=== PATIENT | male | born 1940 | race Caucasian/White ===

== ENCOUNTER 2017-10-31 06:01 | Inpatient (IN) | payer OTHER ==
[~2017-10-31] VITALS: Ht 165.1 cm; Wt 84.1 kg
--- NOTE | 2017-10-31 06:36 | ED GI/GU/ABDOMINAL COMPLAINT ---
History of Present Illness General Chief Complaint: Abdominal Pain/Flank Pain Stated Complaint: VOMITING AND ABD PAIN Source: patient, family, old records Exam Limitations: no limitations Vital Signs & Intake/Output Vital Signs & Intake/Output Vital Signs Date Time Temp Pulse Resp B/P B/P Pulse O2 O2 Flow FiO2 Mean Ox Delivery Rate 10/31 0824 97.8 70 20 119/58 18 Room Air 10/31 0735 98.7 65 20 150/67 97 Room Air 10/31 0613 97 Room Air 10/31 0611 98.0 68 18 137/75 97 Room Air Allergies Coded Allergies: Sulfa (Sulfonamide Antibiotics) (RASH PER PT 10/31/17) Triage Note: PT FROM HOME C/O ABD PAIN SINCE LAST NIGHT D/T EATING PEANUTS YESTERDAY, CHROHNS FLARE UP. PT HAS ILLEOSTOMY IN PLACE. PTS VSS. NO DISTRESS NOTED. PT STATES PAIN 5/10 CRAMPING SENSATION THAT IS NON RADIATING. PT DECLINES HAVING A BM YESTERDAY SINCE EATING THE PEANUTS. PT +NAUSEA/VOMITING 2X EPISODES. Triage Nurses Notes Reviewed? yes Onset: yesterday Duration: hour(s):, constant, continues in ED, getting worse Timing: recent history Quality/Severity: aching, fullness, moderate, severe, vomiting Location: left lower quadrant, right lower quadrant Radiation: no radiation Activities at Onset: eating Prior Abdominal Problems: similar symptoms Past Sexual History: Unobtainable at this time Modifying Factors: Worsens With: eating, palpation. Associated Symptoms: abdominal pain, loss of appetite, nausea/vomiting HPI: Patient has a history of Crohn's disease with colon resection and ileostomy. 1 day prior to admission after eating peanuts patient developed abdominal distention bilateral lower quadrant pain nausea vomiting. He denies fever chills chest pain cough shortness of breath headache dysuria rash bleeding diarrhea.. (Maycol Zambrano MD) Past History Travel History Traveled to [place] past 21 day No Medical History Any Pertinent Medical History? see below for history Cardiovascular: QUAD BYPASS 2002 Gastrointestinal: Crohn's disease, ulcerative colitis, ILLEOSTOMY Surgical History Surgical History: ileostomy Psychosocial History What is your primary language Central African Tobacco Use: Quit >30 days ago Family History Hx Contributory? No (Maycol Zambrano MD) Review of Systems Review of Systems Constitutional: Reports: no symptoms. EENTM: Reports: no symptoms. Respiratory: Reports: no symptoms. Cardiovascular: Reports: no symptoms. GI: Reports: see HPI, abdominal pain, bloating, distention, nausea, vomiting. Genitourinary: Reports: no symptoms. Musculoskeletal: Reports: no symptoms. Skin: Reports: no symptoms. Neurological/Psychological: Reports: no symptoms. Hematologic/Endocrine: Reports: no symptoms. Immunologic/Allergic: Reports: no symptoms. All Other Systems: Reviewed and Negative (Maycol Zambrano MD) Physical Exam Physical Exam General Appearance: well developed/nourished, alert, awake, anxious, moderate distress, obese Head: atraumatic, normal appearance Eyes: Bilateral: normal appearance, PERRL, EOMI, normal inspection. Ears, Nose, Throat, Mouth: hearing grossly normal, moist mucous membrane Neck: normal inspection, supple, full range of motion, normal alignment Respiratory: normal breath sounds, chest non-tender, no respiratory distress, quiet respiration, lungs clear Cardiovascular: regular rate/rhythm, normal peripheral pulses, norml femoral pulses equa Peripheral Pulses: 4+ carotid (R), 4+ carotid (L) Gastrointestinal: soft, no organomegaly, abnormal bowel sounds, distention, tenderness (mild bilateral lower quadrant) Male Genitals: normal genitalia Back: normal inspection, normal range of motion Extremities: normal range of motion, no ligament instability Neurologic/Psych: no motor/sensory deficits, awake, alert, oriented x 3, normal gait, normal mood/affect, recreational specialist II-XII nml as tested Skin: intact, normal color Core Measures ACS in differential dx? No Sepsis Present: No Sepsis Focused Exam Completed? No (Maycol Zambrano MD) Progress Differential Diagnosis: bowel obstruction, gastritis, pancreatitis, SBO Plan of Care: Orders Procedure Date/time Status LIPASE 10/31 628 Complete COMPREHENSIVE METABOLIC PANEL 10/31 628 Complete CBC WITHOUT DIFFERENTIAL 10/31 628 Complete Current Medications Sig/Lacho Start time Last Medication Dose Stop Time Status Admin Sodium Chloride 1,000 ML BOLUS ONE 10/31 929 UNVr (Normal Saline 0.9%) 10/31 102 Sodium Chloride 1,000 ML BOLUS ONE 10/31 929 UNVr (Normal Saline 0.9%) 10/31 1029 Laboratory Tests 10/31/17 0653: Anion Gap 16, Estimated GFR 59 L, BUN/Creatinine Ratio 17.5, Glucose 210 H, Calcium 10.5 H, Total Bilirubin 2.0 H, AST 30, ALT 46, Alkaline Phosphatase 72 , Total Protein 8.1, Albumin 4.6, Globulin 3.5, Albumin/Globulin Ratio 1.3, Lipase 36, CBC w Diff NO MAN DIFF REQ, RBC 5.01, MCV 85.2, MCH 29.4, MCHC 34.5, RDW 15.9 H, MPV 8.8, Gran % 87.8 H, Lymphocytes % 7.1 L, Monocytes % 4.5, Eosinophils % 0.6, Basophils % 0, Absolute Granulocytes 12.7 H, Absolute Lymphocytes 1.0 L, Absolute Monocytes 0.7 H, Absolute Eosinophils 0.1, Absolute Basophils 0 Diagnostic Imaging: Viewed by Me: CT Scan. Discussed w/RAD: CT Scan. Initial ED EKG: none Hand-Off Endorsed To: Malinda HUMMEL,Qiuncy Del Rosario Endorsed Time: 0700 Pending: CT, labs (Juan Manuel HUMMEL,Maycol) Radiology Impression: PATIENT: EMMA HUMMEL PRESENT AGE: 76 PATIENT ACCOUNT NO: [id number] : 40 LOCATION: [facility] ORDERING PHYSICIAN: Maycol Zambrano MD SERVICE DATE: 10/31/17 EXAM TYPE: CAT - CT ABD & PELVIS W IV CONTRAST EXAMINATION: CT ABDOMEN AND PELVIS WITH CONTRAST CLINICAL INFORMATION: Nausea and vomiting. Bloating. Bilateral lower quadrant tenderness. Evaluate for Crohn's flare versus diverticulitis.. COMPARISON: None TECHNIQUE: Multidetector volumetric imaging was performed of the abdomen and pelvis following IV administration of 95 mL of Optiray 320 intravenous contrast. Sagittal and coronal reformatted images were obtained on the technologist's workstation. DLP: 6-7 mGy-cm FINDINGS: LUNG BASES: The visualized lung bases are unremarkable. LIVER, GALLBLADDER, AND BILIARY TREE: The liver is normal in size, shape, and attenuation. No focal hepatic lesion or biliary ductal dilatation is present. The gallbladder is unremarkable with no evidence of radiopaque gallstones, gallbladder wall thickening, or obvious pericholecystic inflammatory changes. PANCREAS: Unremarkable. SPLEEN: Unremarkable. ADRENAL GLANDS: Unremarkable. KIDNEYS AND URETERS: There is a small right lower pole renal stone. There is a small right lower pole renal cyst. The left kidney is unremarkable. BLADDER: Not optimally distended. GASTROINTESTINAL TRACT: The patient appears post total colectomy. There is a right lower quadrant ileostomy. There are dilated fluid-filled loops of small bowel extending to the ostomy. There is a dilated fluid-filled loop of small bowel seen in the ostomy as well. CT appearance is suggestive of distal small bowel obstruction at the level of the ostomy. This could either be due to narrowing at the stoma and redundant loop of small bowel in the ostomy or possibly parastomal hernia containing small bowel and secondary obstruction. Correlation with clinical exam recommended. No bowel wall thickening or enhancement to suggest active Crohn's disease of the small bowel is seen. There is a small amount was ascites seen in the right upper quadrant adjacent to the liver and in the right lower quadrant.. LYMPH NODES: Normal. VASCULAR: Unremarkable. PELVIC VISCERA: Unremarkable. OSSEOUS STRUCTURES: There are degenerative changes of the spine IMPRESSION: Evidence of total colectomy with right lower quadrant ileostomy. There are dilated fluid-filled loops of small bowel extending to the right lower quadrant ileostomy. There is a dilated fluid- filled loop of small bowel in the ostomy. CT appearance is suggestive of distal small bowel obstruction at the level of the ostomy either due to narrowing of the stoma and redundant loop of small bowel in the ostomy or possibly parastomal hernia containing small bowel and obstruction. Clinical correlation recommended. No evidence of active Crohn's disease of the small bowel seen. Small amount of ascites. Small right lower pole renal stone and renal cyst. DICTATED BY: Mattie Hernandez MD DATE/TIME DICTATED:10/31/17824 PRESCHOOL ASSOCIATE TEACHER:BRIANNE DATE/ TIME TRANSCRIBED:10/31/17824 CONFIDENTIAL, DO NOT COPY WITHOUT APPROPRIATE AUTHORIZATION. <Electronically signed in Other Vendor System> SIGNED BY: Mattie Hernandez MD 10/31/17 9001 Comments: Patient and his been updated on lab and CAT scan results. An NG tube has been placed. NG tube placed with good epigastric sounds and no lung sounds. Respirations of gastric contents. Discussed with Dr. Orozco, he would not indicate steroids at this time. (Malinda HUMMEL,Quincy Del Rosario) Departure Departure Disposition: STILL A PATIENT Condition: Stable Referrals: Fracisco HUMMEL,Jennifer Avery (PCP/Family) Departure Forms: Customer Survey General Discharge Information (Juan Manuel HUMMEL,Maycol) Departure Clinical Impression Primary Impression: SBO (small bowel obstruction) Secondary Impressions: Abdominal pain, Crohn's disease, Nausea and vomiting Admission Note Spoke With: Sean HUMMEL,Rd Peralta Documentation of Exam: Documentation of any treatments & extenuating circumstances including Concerns Regarding Discharge (functional status, medication knowledge or non-compliance, living conditions, etc.) that warrant an admission rather than observation: [NG TUBE,AGRESSIVE HYDRATION, SURGICAL EVALUATION] (Malinda HUMMEL,Quincy Del Rosario)
[2017-10-31 07:04] LABS: ABSOLUTE BASOPHIL COUNT 0 /CUMM (0.0-0.2); ABSOLUTE EOSINOPHIL COUNT 0.1 /CUMM (0.0-0.7); ABSOLUTE GRANULOCYTE CT 12.7 /CUMM (1.4-6.5); ABSOLUTE MONOCYTE COUNT 0.7 /CUMM (0.10-0.60); BASOPHIL % 0 % (0.0-2.0); EOSINOPHIL % 0.6 % (0-5); GRANULOCYTE % 87.8 % (42.2-75.2); HEMATOCRIT 42.7 % (42-52); MEAN CORPUSCULAR HGB 29.4 PG (27.0-31.0); MEAN CORPUSCULAR HGB CONC 34.5 G/DL (33.0-37.0); MEAN CORPUSCULAR VOLUME 85.2 FL (80.0-94.0); MEAN PLATELET VOLUME 8.8 FL (7.4-10.4); PLATELET COUNT 194 /CUMM (130-400); RBC DISTRIBUTION WIDTH 15.9 % (11.5-14.5); RED BLOOD CELL CT 5.01 /CUMM (4.70-6.10)
[2017-10-31 07:23] LABS: WHITE BLOOD CELL COUNT 14.5 /CUMM (4.8-10.8)
--- NOTE | 2017-10-31 08:40 | CT SCAN REPORT ---
EXAMINATION: CT ABDOMEN AND PELVIS WITH CONTRAST CLINICAL INFORMATION: Nausea and vomiting. Bloating. Bilateral lower quadrant tenderness. Evaluate for Crohn's flare versus diverticulitis.. COMPARISON: None TECHNIQUE: Multidetector volumetric imaging was performed of the abdomen and pelvis following IV administration of 95 mL of Optiray 320 intravenous contrast. Sagittal and coronal reformatted images were obtained on the technologist's workstation. DLP: 6-7 mGy-cm FINDINGS: LUNG BASES: The visualized lung bases are unremarkable. LIVER, GALLBLADDER, AND BILIARY TREE: The liver is normal in size, shape, and attenuation. No focal hepatic lesion or biliary ductal dilatation is present. The gallbladder is unremarkable with no evidence of radiopaque gallstones, gallbladder wall thickening, or obvious pericholecystic inflammatory changes. PANCREAS: Unremarkable. SPLEEN: Unremarkable. ADRENAL GLANDS: Unremarkable. KIDNEYS AND URETERS: There is a small right lower pole renal stone. There is a small right lower pole renal cyst. The left kidney is unremarkable. BLADDER: Not optimally distended. GASTROINTESTINAL TRACT: The patient appears post total colectomy. There is a right lower quadrant ileostomy. There are dilated fluid-filled loops of small bowel extending to the ostomy. There is a dilated fluid-filled loop of small bowel seen in the ostomy as well. CT appearance is suggestive of distal small bowel obstruction at the level of the ostomy. This could either be due to narrowing at the stoma and redundant loop of small bowel in the ostomy or possibly parastomal hernia containing small bowel and secondary obstruction. Correlation with clinical exam recommended. No bowel wall thickening or enhancement to suggest active Crohn's disease of the small bowel is seen. There is a small amount was ascites seen in the right upper quadrant adjacent to the liver and in the right lower quadrant.. LYMPH NODES: Normal. VASCULAR: Unremarkable. PELVIC VISCERA: Unremarkable. OSSEOUS STRUCTURES: There are degenerative changes of the spine IMPRESSION: Evidence of total colectomy with right lower quadrant ileostomy. There are dilated fluid-filled loops of small bowel extending to the right lower quadrant ileostomy. There is a dilated fluid-filled loop of small bowel in the ostomy. CT appearance is suggestive of distal small bowel obstruction at the level of the ostomy either due to narrowing of the stoma and redundant loop of small bowel in the ostomy or possibly parastomal hernia containing small bowel and obstruction. Clinical correlation recommended. No evidence of active Crohn's disease of the small bowel seen. Small amount of ascites. Small right lower pole renal stone and renal cyst.
--- NOTE | 2017-10-31 10:12 | Admission Core Measures ---
Acute Coronary Syndrome (CM) ACS Core Measures Acute Coronary Syndrome Diagnosis No Congestive Heart Failure (NEW) CHF Core Measures Congestive Heart Failure Diagnosis No Cerebrovascular Accident CVA Core Measures CVA/TIA Diagnosis No Venous Thromboembolism VTE Core Betsy (View Protocol) VTE Risk Factors Immobility No Mechanical VTE Prophylaxis d/t N/A MechProphylax Ordered No VTE Pharm Prophylaxis d/t NA PharmProphylax ordered Problem List As ranked by this Provider includes Assessment & Plan 1. SBO (small bowel obstruction)
--- NOTE | 2017-10-31 10:24 | History & Physical ---
ChandlerHannah 10/31/17 1011: General Information and HPI MD Statement: I have seen and personally examined EMMA HUMMEL and documented this H&P. The patient is a 76 year old M who presented with a patient stated chief complaint of [abdominal pain]. Source of Information: patient, family Exam Limitations: no limitations History of Present Illness: This is a 76-year-old male who presented to the ER with abdominal pain and tenderness over the last 24 hours. He is status post ileostomy back in January 2017 at [facility]. Many years he had suffered from ulcerative colitis and Crohn's and his tissue pathology would always show dysplasia however recently he was diagnosed with colon cancer and ended up having a total colectomy and ileostomy placed. 2 weeks ago he noticed that the stoma was not putting out normally, this lasted for a day and his symptoms subsided. Last evening he was eating peanuts and shortly after that started to developed abdominal pain bloating, nausea with vomiting and he noticed that his ostomy bag was not filling. He normally changes this bag 4 times a day. He denies any fevers or chills, shortness of breath or chest pain. Allergies/Medications Allergies: Coded Allergies: Sulfa (Sulfonamide Antibiotics) (RASH PER PT 10/31/17) Compliance With Home Meds: GOOD Past History Travel History Traveled to [place] past 21 day No Medical History Cardiovascular: hypertension, hyperlipidemia, QUAD BYPASS 2002 Gastrointestinal: Crohn's disease, ulcerative colitis, ILLEOSTOMY Surgical History Surgical History: ileostomy Past Family/Social History Psychosocial History Where do you live? Home Who Do You Live With? spouse Services at Home: None Primary Language: Palestinian Smoking Status: Former Smoker ETOH Use: occasional use Illicit Drug Use: denies illicit drug use Functional Ability ADLs Independent: dressing, eating, toileting, bathing. Ambulation: independent Sexual History Past Sexual History Unobtainable at this time Review of Systems Review of Systems Constitutional: Denies: chills, fever, weakness. EENTM: Denies: no symptoms. Cardiovascular: Denies: chest pain, peripheral edema, syncope. Respiratory: Denies: cough, short of breath. GI: Reports: abdominal pain, bloating, distention, nausea, changes in stool, vomiting. Genitourinary: Denies: no symptoms. Musculoskeletal: Denies: no symptoms. Skin: Denies: no symptoms. Neurological/Psychological: Denies: anxiety, confusion, depressed. Hematologic/Endocrine: Denies: no symptoms. Exam & Diagnostic Data Last 24 Hrs of Vital Signs/I&O Vital Signs Date Time Temp Pulse Resp B/P B/P Pulse O2 O2 Flow FiO2 Mean Ox Delivery Rate 10/31 0824 97.8 70 20 119/58 18 Room Air 10/31 0735 98.7 65 20 150/67 97 Room Air 10/31 0613 97 Room Air 10/31 0611 98.0 68 18 137/75 97 Room Air Intake & Output 10/31 1600 10/31 0800 10/31 0000 Intake Total 1100 Output Total Balance 1100 Intake, IV 1100 Patient 195 lb Weight Weight Reported by Patient Measurement Method Physical Exam General Appearance Oriented X3, Cooperative, No Acute Distress Skin No Rashes Skin Temp/Moisture Exam: Warm/Dry HEENT Atraumatic, PERRLA, EOMI Neck Supple Cardiovascular Regular Rate, Normal S1, Normal S2, No Murmurs, Gallops, Rubs Lungs Clear to Auscultation, Normal Air Movement Abdomen Soft, abdomen is rounded with mild distention but soft to palpation with no guarding or rebound. Inspection of the ostomy site shows there is no air within the bag and it is completely deflated. There is some loose stool that seems to be scant in nature this bag was placed this morning. There is no air in the stoma bag. Neurological Normal Speech, Strength at 5/5 X4 Ext, Sensation Intact, Reflexes 2 + Extremities No Edema, Normal Pulses, No Tenderness/Swelling Vascular Normal Pulses Last 24 Hrs of Labs/Naveed: Laboratory Tests 10/31/17 0653: Anion Gap 16, Estimated GFR 59 L, BUN/Creatinine Ratio 17.5, Glucose 210 H, Calcium 10.5 H, Total Bilirubin 2.0 H, AST 30, ALT 46, Alkaline Phosphatase 72 , Total Protein 8.1, Albumin 4.6, Globulin 3.5, Albumin/Globulin Ratio 1.3, Lipase 36, CBC w Diff NO MAN DIFF REQ, RBC 5.01, MCV 85.2, MCH 29.4, MCHC 34.5, RDW 15.9 H, MPV 8.8, Gran % 87.8 H, Lymphocytes % 7.1 L, Monocytes % 4.5, Eosinophils % 0.6, Basophils % 0, Absolute Granulocytes 12.7 H, Absolute Lymphocytes 1.0 L, Absolute Monocytes 0.7 H, Absolute Eosinophils 0.1, Absolute Basophils 0 Assessment/Plan Assessment: This is a 76-year-old male status post total colectomy and ileostomy for colon CA at [facility] in January 2017. Since his previous surgery he has been progressing well with little issues with his stoma until now. CAT scan of his abdomen and pelvis show evidence of a total colectomy with right lower quadrant ileostomy. There are dilated fluid-filled loops of small bowel extending to the right quadrant ileostomy just staying distal small bowel obstruction at the level of the stoma, may represent a peristomal hernia Plan he will be admitted to the surgical service for IV hydration and bowel rest with NG tube insertion. While in the emergency room and NG tube was placed and approximately 500 mL bile fluid removed. He will be on heparin subcutaneous for DVT prophylaxis Protonix for GI prophylaxis Encourage out of bed and ambulation Core Measures/Misc (12/27) Acute Coronary Syndrome ACS Diagnosis: No Congestive Heart Failure Congestive Heart Failure Diagnosis No Cerebrovascular Accident CVA/TIA Diagnosis: No VTE (View Protocol) VTE Risk Factors Immobility Sepsis (View protocol) If YES complete Sepsis Event Note If YES complete Sepsis Event Note Rd Estrada MD 10/31/17 1256: Assessment/Plan As Ranked By This Provider Problem List: 1. 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 Core Measures/Misc (12/27) VTE (View Protocol) No Mechanical VTE Prophylaxis d/t N/A MechProphylax Ordered No VTE Pharm Prophylaxis d/t NA PharmProphylax ordered Sepsis (View protocol) Sepsis Present: No If YES complete Sepsis Event Note If YES complete Sepsis Event Note Attending MD Review Statement Attending Statement Attending MD Statement: examined this patient, discuss w/resident/PA/FIBRE OPTIC CABLE SPLICER, agreed w/resident/PA/FIBRE OPTIC CABLE SPLICER, reviewed images Attending Assessment/Plan: 76yo male presents 9 months post total proctocolectomy with end ileostomy(cancer in setting of chronic UC) with sbo. concern for parastoma hernia as etiology. I reviewed images from CT. There is a redundant loop of small bowel in stoma site. Correlating clinically there is bowel medial to stoma that feels reducible but immediately herniates. Digital manipulation of stoma fails to show a site of obstruction or food impaction. I am not convinced that a parastoma hernia is the cause of his sbo. May be due to adhesive disease or peanut impaction. plan for ng decompression and serial abd exam/xray. Operative management pending clinical course.
--- NOTE | 2017-10-31 10:33 | Surgical Discharge Summary ---
Visit Information Visit Dates Admission Date: 10/31/2017 Discharge Date: 11/03/17 History of Present Illness Chief Complaint: This is a 76-year-old gentleman who was admitted through the ER with a small bowel obstruction. He is status post total colectomy and right ileostomy in January 2017. He was admitted to the surgical service for bowel rest and NG tube placement and IV hydration. He underwent conservative management and had return of ostomy function. Diet was advanced in a stepwise fashion after ngt was removed. By time of discharge patient was ambulating, voiding, tolerating a low residue diet, and he had no abdominal pain. Plan is for the patient to follow up with Dr. Estrada in 1-2 weeks. Full details of his hospital course and diagnostic studies can be found in his electronic chart. Medical History Cardiovascular: hypertension, hyperlipidemia, QUAD BYPASS 2003 Gastrointestinal: Crohn's disease, ulcerative colitis, ILLEOSTOMY Surgical History Pertinent Surgical History: ileostomy Psychosocial History Where Do You Live? Home Services at Home: None What is Your Primary Language? New Zealander ETOH Use: occasional use Review of Systems: as per H&P Physical Exam: Gen: A, A, NAD Abd: Obese, soft, nd, nt, ostomy pink/func/viable with air and brown liquid stool in appliance Ext: No clubbing, cyanosis or edema Hospital Course Course Attending Physician: Sean Primary Care Physician: Jennifer Yap MD, I. Hospital Course: as per HPI Complications: none Allergies: Coded Allergies: Sulfa (Sulfonamide Antibiotics) (RASH PER PT 10/31/17) Significant Procedures: none Disposition Summary Disposition Principal Diagnosis: SBO Additional Diagnosis: none Discharge Disposition: home or self care Discharge Instructions General Discharge Information Code Status: Full Code Patient's Diet: low residue Patient's Activity: as tolerated Follow-Up Instructions/Appts: as per d/c instructions Copies To: Sean HUMMEL,Rd Peralta
[2017-10-31 12:00] VITALS: BP 160/80
--- NOTE | 2017-10-31 12:36 | RADIOLOGY REPORT ---
EXAMINATION: XR PORTABLE CHEST CLINICAL INFORMATION: Post nasogastric tube placement COMPARISON: None TECHNIQUE: Portable frontal view of the chest was obtained. FINDINGS: There is a nasogastric tube with tip projecting over the proximal stomach. Cardiac silhouette does not appear enlarged. There are post-CABG changes. Hilar and mediastinal contours are unremarkable. The lungs are clear. There is no pleural effusion or pneumothorax. IMPRESSION: Nasogastric tube tip projects over the proximal stomach.
[2017-10-31 15:18] VITALS: BP 138/64
[2017-10-31 21:35] VITALS: BP 120/80
[2017-11-01 06:12] VITALS: BP 130/70
--- NOTE | 2017-11-01 08:02 | PN- General Surgery ---
See Addendum Subjective Subjective: feeling ok, some abd pain, no n/v, some belching. no ostomy stool or gas since admission. feeling bloated. no cp/sob. some oob yesterday rafa Objective Vital Signs and I&Os Vital Signs Date Time Temp Pulse Resp B/P B/P Pulse O2 O2 Flow FiO2 Mean Ox Delivery Rate 11/01 0651 78 130/70 11/01 0612 98.5 78 18 130/70 94 10/31 2135 98.3 74 18 120/80 94 10/31 1600 Room Air 10/31 1518 97.8 69 18 138/64 97 10/31 1200 98.4 84 18 160/80 99 Room Air 10/31 1140 98.4 70 20 136/70 98 Room Air 10/31 1020 98.0 73 20 140/75 98 Room Air 10/31 0824 97.8 70 20 119/58 18 Room Air Intake & Output 11/01 0800 11/01 0000 10/31 1600 10/31 0800 10/31 0000 10/30 1600 Intake Total 400 1400 Output Total 750 400 Balance -350 1000 Intake, IV 400 1400 Intake, Oral 0 Output, 400 200 Gastric Drainage Output, Urine 350 200 Patient 200 lb 195 lb Weight Weight Bed scale Reported by Patient Measurement Method Physical Exam: gen- nad, awake, alert card- s1s2 rrr pulm- ctab, no wheeze abd- soft, distended, tympanic, nontender, stoma pink, bag without stool or gas. +bs. 100cc bilious in ngt overnight, (ngt clamped as just had po htn meds) ext- calves soft nt, alps on Current Medications: Current Medications Sig/Lacho Start time Last Medication Dose Route Stop Time Status Admin Acetaminophen 1,000 MG Q6P PRN 10/31 1045 AC 10/31 N/A 1 UNIT IV 1400 Amlodipine Besylate 5 MG DAILY 11/01 0900 AC PO Atenolol 150 MG DAILY AC 11/01 0700 AC 11/01 NG 0651 Atorvastatin Calcium 20 MG 1700 10/31 1700 DC 10/31 PO 1628 Dexamethasone 8 MG ONCE ONE 10/31 1929 DC 10/31 IV 10/31 Dextrose/Sodium 1,000 ML Q10H 11/01 0745 AC Chloride IV Heparin Sodium 5,000 UNIT Q8 10/31 1400 AC 11/01 (Porcine) SC 0651 Lisinopril 10 MG DAILY 11/01 0900 AC PO Melatonin 5 MG ONCE ONE 11/01 0200 DC 11/01 PO 11/01 0201 0207 Morphine Sulfate 2 MG Q4P PRN 10/31 1045 AC 10/31 IV 1251 Morphine Sulfate 4 MG Q4P PRN 10/31 1045 AC IV Ondansetron HCl 4 MG Q6P PRN 10/31 1745 AC 10/31 IV 1823 Ondansetron HCl 4 MG Q8P PRN 10/31 1045 DC 10/31 IV 1249 Ondansetron HCl 4 MG ONCE ONE 10/31 0915 DC 10/31 IV 10/31 0916 0902 Ondansetron HCl 0 .STK-MED ONE 10/31 0850 DC .ROUTE Pantoprazole Sodium 40 MG DAILY 11/01 09 AC IV Sodium Chloride 1,000 ML .Q10H 10/31 1045 DC 11/01 IV 0026 Sodium Chloride 1,000 ML BOLUS ONE 10/31 0930 DC 10/31 IV 10/31 1029 1040 Sodium Chloride 1,000 ML BOLUS ONE 10/31 0930 DC 10/31 IV 10/31 1029 0936 Results Last 48 Hours of Labs: Laboratory Tests 10/31 0653 Chemistry Sodium (137 - 145 mmol/L) 136 L Potassium (3.5 - 5.1 mmol/L) 5.4 H Chloride (98 - 107 mmol/L) 100 Carbon Dioxide (22 - 30 mmol/L) 20 L Anion Gap (5 - 16) 16 BUN (9 - 20 mg/dL) 21 H Creatinine (0.7 - 1.2 mg/dL) 1.2 Estimated GFR (>60 ml/min) 59 L BUN/Creatinine Ratio (7 - 25 %) 17.5 Glucose (65 - 99 mg/dL) 210 H Calcium (8.4 - 10.2 mg/dL) 10.5 H Total Bilirubin (0.2 - 1.3 mg/dL) 2.0 H AST (17 - 59 U/L) 30 ALT (21 - 72 U/L) 46 Alkaline Phosphatase (< 127 U/L) 72 Total Protein (6.3 - 8.2 g/dL) 8.1 Albumin (3.5 - 5.0 g/dL) 4.6 Globulin (1.9 - 4.2 gm/dL) 3.5 Albumin/Globulin Ratio (1.1 - 2.2 %) 1.3 Lipase (23 - 300 U/L) 36 Hematology CBC w Diff NO MAN DIFF REQ WBC (4.8 - 10.8 /CUMM) 14.5 H RBC (4.70 - 6.10 /CUMM) 5.01 Hgb (14.0 - 18.0 G/DL) 14.7 Hct (42 - 52 %) 42.7 MCV (80.0 - 94.0 FL) 85.2 MCH (27.0 - 31.0 PG) 29.4 MCHC (33.0 - 37.0 G/DL) 34.5 RDW (11.5 - 14.5 %) 15.9 H Plt Count (130 - 400 /CUMM) 194 MPV (7.4 - 10.4 FL) 8.8 Gran % (42.2 - 75.2 %) 87.8 H Lymphocytes % (20.5 - 51.1 %) 7.1 L Monocytes % (1.7 - 9.3 %) 4.5 Eosinophils % (0 - 5 %) 0.6 Basophils % (0.0 - 2.0 %) 0 Absolute Granulocytes (1.4 - 6.5 /CUMM) 12.7 H Absolute Lymphocytes (1.2 - 3.4 /CUMM) 1.0 L Absolute Monocytes (0.10 - 0.60 /CUMM) 0.7 H Absolute Eosinophils (0.0 - 0.7 /CUMM) 0.1 Absolute Basophils (0.0 - 0.2 /CUMM) 0 Assessment/Plan Assessment/Plan A- 76yoM with persistent SBO, sp total colectomy w ileostomy 2016, stable with no bowel fxn. P- cont npo cont ngt to lc[facility] strict i&os ivf am labs pending home med dose fixed oob, ambualte ?abd xry today serial abd exams will dw attending Core Measures Venous Thromboembolism VTE Risk Factors Immobility No Mechanical VTE Prophylaxis d/t N/A MechProphylax Ordered No VTE Pharm Prophylaxis d/t NA PharmProphylax ordered
[2017-11-01 14:45] VITALS: BP 122/60
[2017-11-01 16:44] LABS: ABSOLUTE BASOPHIL COUNT 0 /CUMM (0.0-0.2); ABSOLUTE EOSINOPHIL COUNT 0 /CUMM (0.0-0.7); ABSOLUTE GRANULOCYTE CT 3.6 /CUMM (1.4-6.5); ABSOLUTE LYMPH COUNT 0.6 /CUMM (1.2-3.4); ABSOLUTE MONOCYTE COUNT 1.2 /CUMM (0.10-0.60); BASOPHIL % 0.2 % (0.0-2.0); EOSINOPHIL % 0.1 % (0-5); GRANULOCYTE % 66.7 % (42.2-75.2); MEAN CORPUSCULAR HGB 29.3 PG (27.0-31.0); MEAN CORPUSCULAR HGB CONC 34.2 G/DL (33.0-37.0); MEAN CORPUSCULAR VOLUME 85.7 FL (80.0-94.0); MEAN PLATELET VOLUME 8.9 FL (7.4-10.4); PLATELET COUNT 181 /CUMM (130-400); RBC DISTRIBUTION WIDTH 15.6 % (11.5-14.5); RED BLOOD CELL CT 4.18 /CUMM (4.70-6.10)
[2017-11-01 16:45] LABS: HEMATOCRIT 35.8 % (42-52); WHITE BLOOD CELL COUNT 5.4 /CUMM (4.8-10.8)
[2017-11-01 22:38] VITALS: BP 112/60
[2017-11-02 06:54] VITALS: BP 128/56
--- NOTE | 2017-11-02 07:56 | PN- General Surgery ---
See Addendum Subjective Subjective: No acute overnight events reported. No complaints of nausea or vomitting post NGT removal. Continues to have output from ileostomy. No difficulty voiding. Had sips of water overnight but states that he felt crampy discomfort following intake. Denies chest pain, shortness of breath. Has been ambulating without difficulty. Objective Vital Signs and I&Os Vital Signs Date Time Temp Pulse Resp B/P B/P Pulse O2 O2 Flow FiO2 Mean Ox Delivery Rate 11/02 0654 98.1 60 16 128/56 96 Room Air 11/01 2238 98.7 67 19 112/60 95 Room Air 11/01 1600 Room Air 11/01 1445 98.0 73 16 122/60 97 Room Air 11/01 0913 130/70 11/01 0913 130/70 Intake & Output 11/02 0800 11/02 0000 11/01 1600 11/01 0800 11/01 0000 10/31 1600 Intake Total 1000 830 900 104 256 9613 Output Total 1150 2030 2125 350 750 400 Balance -150 -1200 -1225 450 -350 1000 Intake, IV 1000 800 900 364 132 5324 Intake, Oral 30 0 0 Output, 100 400 200 Gastric Drainage Output, Stool 600 1500 1925 Output, Urine 550 530 200 250 350 200 Patient 185 lb 200 lb Weight Weight Bed scale Measurement Method Physical Exam: General: Alert and oriented x3, no acute distress Cardiac: RRR, s1s2 Pulm: CTA bilaterally, non-labored respiratory effort Abdomen: Soft, non-tender, non-distended Ileostomy: Stoma pink and viable, gas and liquid stool noted, green. See I/O for total overnight output Extremities: Moves all extremities, distal sensation intact. No peripheral edema noted. Bialteral calves soft and non-tender Assessment/Plan Assessment/Plan This is a 76 year old male, hospital day 2 with sbo. PSH includes Ileostomy function returned yesterday, has had greater than 3L liquid/stool output. NGT dc'd last evening, no nausea or vomitting, no return of abdominal distension. Discomfort noted with po intake yesterday evening. -Continue sips, plan to advance to clear liquid diet as tolerated -Continue iv fluid resuscitation until tolerating adequate po -OOB encouraged -Hep sub q for dvt ppx -Protonix for gi ppx Will discuss plan of care with Dr. Estrada Core Measures Venous Thromboembolism VTE Risk Factors Immobility No Mechanical VTE Prophylaxis d/t N/A MechProphylax Ordered No VTE Pharm Prophylaxis d/t NA PharmProphylax ordered
[2017-11-02 08:30] VITALS: BP 138/60
[2017-11-02 15:05] VITALS: BP 110/70
[2017-11-02 21:23] VITALS: BP 116/60
[2017-11-03 06:20] VITALS: BP 146/70
--- NOTE | 2017-11-03 07:51 | PN- General Surgery ---
Subjective Subjective: Patient doing well this am. Has return of bowel function via ostomy both air/ liquid stool. No n/v and tolerating clears. No other issues or complaints. Objective Vital Signs and I&Os Vital Signs Date Time Temp Pulse Resp B/P B/P Pulse O2 O2 Flow FiO2 Mean Ox Delivery Rate 11/03 06 99.0 70 20 146/70 95 Room Air 11/02 2123 98.6 81 20 116/60 96 Room Air 11/02 1505 98.5 86 20 110/70 97 11/02 0830 68 138/60 97 Room Air Intake & Output 11/03 0811/03 0000 11/02 1600 11/02 0811/02 0000 11/01 1600 Intake Total 1040 1500 1280 1000 830 900 Output Total 1550 1500 1950 1600 2030 2125 Balance -510 0 -670 -600 -1200 -1225 Intake, IV 800 442 694 9478 800 900 Intake, Oral 240 700 480 30 0 Output, Stool 7596 058 4505 850 1500 1925 Output, Urine 500 700 625 750 530 200 Patient 185 lb Weight Physical Exam: Gen: A, A, NAD Abd: Obese, soft, nd, nt, ostomy pink/func/viable with air and brown liquid stool in appliance Ext: No clubbing, cyanosis or edema Current Medications: Current Medications Sig/Lacho Start time Last Medication Dose Route Stop Time Status Admin Acetaminophen 1,000 MG Q6P PRN 10/31 1045 AC 11/01 N/A 1 UNIT IV 0911 Amlodipine Besylate 5 MG DAILY 11/01 09 AC 11/02 PO 0831 Atenolol 100 MG DAILY 11/02 09 AC 11/02 NG 0832 Dextrose/Sodium 1,000 ML Q10H 11/01 0745 AC 11/03 Chloride IV 0146 Heparin Sodium 5,000 UNIT Q8 10/31 1400 AC 11/03 (Porcine) SC 0602 Lisinopril 10 MG DAILY 11/01 0911/02 PO 0832 Morphine Sulfate 2 MG Q4P PRN 10/31 1045 AC 10/31 IV 1251 Morphine Sulfate 4 MG Q4P PRN 10/31 1045 AC IV Ondansetron HCl 4 MG Q6P PRN 10/31 1745 AC 10/31 IV 1823 Pantoprazole Sodium 40 MG DAILY 11/01 09 AC 07/24 IV 0832 Patient Medication 1 ED ONE ONE 11/02 1700 DC 11/02 [facility] ED 11/02 1701 1654 Results Last 48 Hours of Labs: Laboratory Tests 11/02 11/01 0630 1610 Chemistry Sodium (137 - 145 mmol/L) 137 138 Potassium (3.5 - 5.1 mmol/L) 4.0 4.3 Chloride (98 - 107 mmol/L) 106 104 Carbon Dioxide (22 - 30 mmol/L) 21 L 22 Anion Gap (5 - 16) 10 12 BUN (9 - 20 mg/dL) 23 H 28 H Creatinine (0.7 - 1.2 mg/dL) 1.0 1.1 Estimated GFR (>60 ml/min) > 60 > 60 BUN/Creatinine Ratio (7 - 25 %) 23.0 25.5 H Phosphorus (2.5 - 4.5 mg/dL) 1.8 L Magnesium (1.6 - 2.3 mg/dL) 2.2 Hematology CBC w Diff MAN DIFF ORDERED WBC (4.8 - 10.8 /CUMM) 5.4 RBC (4.70 - 6.10 /CUMM) 4.18 L Hgb (14.0 - 18.0 G/DL) 12.2 L Hct (42 - 52 %) 35.8 L MCV (80.0 - 94.0 FL) 85.7 MCH (27.0 - 31.0 PG) 29.3 MCHC (33.0 - 37.0 G/DL) 34.2 RDW (11.5 - 14.5 %) 15.6 H Plt Count (130 - 400 /CUMM) 181 MPV (7.4 - 10.4 FL) 8.9 Gran % (42.2 - 75.2 %) 66.7 Lymphocytes % (20.5 - 51.1 %) 10.8 L Monocytes % (1.7 - 9.3 %) 22.2 H Eosinophils % (0 - 5 %) 0.1 Basophils % (0.0 - 2.0 %) 0.2 Absolute Granulocytes (1.4 - 6.5 /CUMM) 3.6 Segmented Neutrophils (42.2 - 75.2 %) 45 Band Neutrophils (0.0 - 5.0 %) 17 H Absolute Lymphocytes (1.2 - 3.4 /CUMM) 0.6 L Lymphocytes (20.5 - 51.1 %) 18 L Monocytes (1.7 - 9.3 %) 19 H Absolute Monocytes (0.10 - 0.60 /CUMM) 1.2 H Absolute Eosinophils (0.0 - 0.7 /CUMM) 0 Basophils (0.0 - 2.0 %) 1 Absolute Basophils (0.0 - 0.2 /CUMM) 0 Platelet Estimate (ADEQUATE) VERIFIED BY SMEAR Normocytic RBCs VERIFIED Normochromic RBCs VERIFIED Other Body Source Fld Total RBCs Counted (%) 100 Assessment/Plan Assessment/Plan This is a 76 year old male, hospital day 3 with now resolved sbo. Ileostomy function fully returned today, has had 1050 of liquid/stool output today. Tolerating clears with no nausea or vomitting, no return of abdominal distension. -Low residue -HL IVF -OOB encouraged -Hep sub q for dvt ppx -Protonix for gi ppx -Case d/w Dr. Estrada -If tolerates low residue plan for d/c home today Core Measures Venous Thromboembolism VTE Risk Factors Immobility No Mechanical VTE Prophylaxis d/t N/A MechProphylax Ordered No VTE Pharm Prophylaxis d/t NA PharmProphylax ordered
--- NOTE | 2017-11-03 08:00 | Patient Discharge Instructions ---
Discharge Instructions General Discharge Information You were seen/treated for: sbo You had these procedures: none Watch for these problems: recurrance of symptoms: abdominal pain, nausea, vomiting or no bowel function Diet Continue normal diet: Yes Recommended Diet: Low Residue Activity Full Activity/No Limits: Yes Activity Self Limited: Yes Acute Coronary Syndrome Inclusion Criteria At DC or during hospital stay patient has or had the following: ACS DIAGNOSIS No Discharge Core Measures Meds if any: Prescribed or Continued at Discharge Meds if any: NOT Prescribed or Continued at Discharge Congestive Heart Failure Inclusion Criteria At DC or during hospital stay patient has or had the following: CHF DIAGNOSIS No Discharge Core Measures Meds if any: Prescribed or Continued at Discharge Meds if any: NOT Prescribed or Continued at Discharge Cerebrovascular accident Inclusion Criteria At DC or during hospital stay patient has or had the following: CVA/TIA Diagnosis No Discharge Core Measures Meds if any: Prescribed or Continued at Discharge Meds if any: NOT Prescribed or Continued at Discharge Venous thromboembolism Inclusion Criteria VTE Diagnosis No VTE Type NONE VTE Confirmed by (Test) NONE Discharge Core Measures - Per Current guidelines, there needs to be overlap - treatment for the first 5 days of Warfarin therapy. - If discharged on Warfarin prior to 5 days of - overlap therapy, the patient will need to be - assessed for post discharge needs including - *Post discharge parental anticoagulation - *Warfarin and/or parental anticoagulation education - *Follow up date to check INR post discharge At least 5 days overlap therapy as Inpatient No Meds if any: Prescribed or Continued at Discharge Note: Overlap Therapy is Warfarin and Anticoagulant Meds if any: NOT Prescribed or Continued at Discharge
[2017-11-03] MEDS ORDERED: OMEPRAZOLE40 M1 PO (11:20)
[2017-11-03] MEDS ORDERED: RAMIPRIL10 M1 PO (11:20)
[2017-11-03] MEDS ORDERED: AMLODIPINE BESYL5 M1 PO (11:21)
[2017-11-03] MEDS ORDERED: ATENOLOL50 M1 PO (11:21)
[2017-11-03] MEDS ORDERED: VITAMIN D250000 UNIT PO (11:22)
[2017-11-03] MEDS ORDERED: SIMVASTATIN40 M1 PO (11:23)
[2017-11-03] MEDS ORDERED: METHOTREXATE2.5 M2 PO (11:23)
[2017-11-03] MEDS ORDERED: ASPIRIN81 M4 PO (11:24)
[2017-11-03] MEDS ORDERED: TAMSULOSIN HCL0.4 M1 PO (11:24)
[2017-11-03] MEDS ORDERED: VITAMIN B-121000 MC3 PO (11:25)
[2017-11-03] MEDS ORDERED: FOLIC ACID1 M1 PO (11:26)
[2017-11-03] MEDS ORDERED: VITAMIN B-650 M2 PO (11:26)
[2017-11-03 14:20] VITALS: BP 120/60
== END 2017-11-03 16:06 | DRG 389 ==
LOC: ERH 06:01 → 2NA 09:36 → ERHI 09:36 → ENRESERV 11:05 → ENTRNSPT 11:42 → EDTRNSPTSTS 11:45 → EDTRNSPT 11:45 → 2NA 11:50 → CMPTRNSPT 12:09 → ENPENDDIS 11-03 08:21 → 2NA 11-03 16:06
PROVIDERS: Emergency Medicine; Physician Assistant
PROC: 0DH67UZ Insertion of Feeding Device into Stomach, Via Natural or Artificial Opening (ICD-10-PCS; principal; 2017-10-31)
PROC: 3E0G76Z Introduction of Nutritional Substance into Upper GI, Via Natural or Artificial Opening (ICD-10-PCS; principal; 2017-10-31)
DX: K56.609 Unspecified intestinal obstruction, unspecified as to partial versus complete obstruction (principal); K43.3 Parastomal hernia with obstruction, without gangrene; Z93.2 Ileostomy status; E66.9 Obesity, unspecified; Z68.33 Body mass index [BMI] 33.0-33.9, adult; Z90.49 Acquired absence of other specified parts of digestive tract; Z85.038 Personal history of other malignant neoplasm of large intestine; I10 Essential (primary) hypertension; Z88.2 Allergy status to sulfonamides; E78.5 Hyperlipidemia, unspecified; Z95.1 Presence of aortocoronary bypass graft
CPT/HCPCS: 2NASP; 36592; 71045; 74177; 82436; 96361; 96374; 96375; 96376; J0131; J1100; J1644; J2405; J7042

== ENCOUNTER 2017-12-19 07:29 | Inpatient (IN) | payer OTHER ==
[~2017-12-19] VITALS: Ht 165.1 cm; Wt 86.2 kg
[~2017-12-19 07:29] MED LIST: AMLODIPINE BESYL5 M1 PO; ASPIRIN81 M4 PO; ATENOLOL50 M1 PO; FOLIC ACID1 M1 PO; METHOTREXATE2.5 M2 PO; OMEPRAZOLE40 M1 PO; RAMIPRIL10 M1 PO; SIMVASTATIN40 M1 PO; TAMSULOSIN HCL0.4 M1 PO; VITAMIN B-121000 MC3 PO; VITAMIN B-650 M2 PO; VITAMIN D250000 UNIT PO
--- NOTE | 2017-12-19 08:09 | ED GI/GU/ABDOMINAL COMPLAINT ---
History of Present Illness General Chief Complaint: Abdominal Pain/Flank Pain Stated Complaint: ABD PAIN, +NVD, PT HAS AN ILLIOSTOMY Source: patient, family, old records Exam Limitations: no limitations Vital Signs & Intake/Output Vital Signs & Intake/Output Vital Signs Date Time Temp Pulse Resp B/P B/P Pulse O2 O2 Flow FiO2 Mean Ox Delivery Rate 12/19 908 97.0 74 20 154/67 100 Room Air 12/19 0823 70 138/65 12/19 0811 97 Room Air 12/19 0735 98.3 64 18 145/83 98 Room Air Allergies Coded Allergies: Sulfa (Sulfonamide Antibiotics) (RASH PER PT 10/31/17) Reconcile Medications Amlodipine Besylate 5 MG TABLET 1 TAB PO DAILY HIGH BLOOD PRESSURE (Reported) Aspirin (Aspirin*) 81 MG TAB.CHEW 1 TAB PO DAILY HEART HEALTH (Reported) Atenolol 50 MG TABLET 1 TAB PO DAILY HIGH BLOOD PRESSURE (Reported) Cyanocobalamin (Vitamin B-12) 1,000 MCG TABLET 1 TAB PO DAILY VITAMIN SUPPORT (Reported) Ergocalciferol (Vitamin D2) (Vitamin D2) 50,000 UNIT CAPSULE 1 CAP PO QW VITAMIN SUPPORT (Reported) Folic Acid 1 MG TABLET 1 TAB PO DAILY VITAMIN SUPPORT (Reported) Methotrexate 2.5 MG TABLET 6 TAB PO QW BOWEL HEALTH (Reported) Omeprazole 40 MG CAPSULE.DR 1 CAP PO DAILY ACID REFLUX (Reported) Pyridoxine HCl (Vitamin B-6) 50 MG TABLET 1 TAB PO DAILY VITAMIN SUPPORT ( Reported) Ramipril 10 MG CAPSULE 1 CAP PO DAILY HIGH BLOOD PRESSURE (Reported) Simvastatin (Simvastatin*) 40 MG TABLET 1 TAB PO QPM HIGH CHOLESTROL ( Reported) Tamsulosin HCl 0.4 MG CAP.ER.24H 1 CAP PO DAILY BPH (Reported) Triage Note: 77 YO MALE TO TRIAGE FOR EVAL OF ABD PAIN WITH +VOMTIING. REPORTS HAS AN ILEOSTOMY AND "NOTHING IS COMING OUT" STATES THIS STARTED YESTERDAY, HASNT BEEN ABLE TO DRINK/EAT ANYTHING SINCE. Triage Nurses Notes Reviewed? yes Onset: yesterday Duration: day(s):, constant, continues in ED, getting worse Timing: recent history Quality/Severity: aching, fullness, severe, vomiting Location: generalized abdomen Radiation: no radiation Activities at Onset: physical activity Prior Abdominal Problems: similar symptoms Past Sexual History: Unobtainable at this time Modifying Factors: Worsens With: eating, movement, palpation. Associated Symptoms: abdominal pain, loss of appetite, nausea/vomiting HPI: 1 day prior to admission patient complains of increasing abdominal distention with decreased ileostomy output generalized pain anorexia nausea vomiting. He denies fever chills chest pain cough shortness of breath headache dysuria rash bleeding. Past History Travel History Traveled to [place] past 21 day No Medical History Any Pertinent Medical History? see below for history Neurological: NONE EENT: NONE Cardiovascular: hypertension, hyperlipidemia, QUAD BYPASS 2002 Respiratory: NONE Gastrointestinal: Crohn's disease, ulcerative colitis, ILLEOSTOMY Hepatic: NONE Renal: NONE Musculoskeletal: NONE Psychiatric: NONE Endocrine: NONE Blood Disorders: NONE Cancer(s): NONE STENOGRAPHER SECRETARY/Reproductive: NONE History of MRSA: No History of VRE: No History of CDIFF: No Surgical History Surgical History: ileostomy Psychosocial History Who do you live with Spouse Services at Home None What is your primary language Syriac Tobacco Use: Never used Family History Hx Contributory? No Review of Systems Review of Systems Constitutional: Reports: see HPI, weakness. EENTM: Reports: no symptoms. Respiratory: Reports: no symptoms. Cardiovascular: Reports: no symptoms. GI: Reports: see HPI, abdominal pain, bloating, nausea, vomiting. Genitourinary: Reports: no symptoms. Musculoskeletal: Reports: no symptoms. Skin: Reports: no symptoms. Neurological/Psychological: Reports: no symptoms. Hematologic/Endocrine: Reports: no symptoms. Immunologic/Allergic: Reports: no symptoms. All Other Systems: Reviewed and Negative Physical Exam Physical Exam General Appearance: well developed/nourished, alert, awake, anxious, severe distress, obese Head: atraumatic, normal appearance Eyes: Bilateral: normal appearance, PERRL, EOMI, normal inspection. Ears, Nose, Throat, Mouth: hearing grossly normal, dry mucous membranes Neck: normal inspection, supple, full range of motion, normal alignment Respiratory: normal breath sounds, chest non-tender, no respiratory distress, quiet respiration, lungs clear Cardiovascular: regular rate/rhythm, normal peripheral pulses, norml femoral pulses equa Peripheral Pulses: 4+ carotid (R), 4+ carotid (L) Gastrointestinal: soft, distention, tenderness, ileostomy with scanty fluid drainage Male Genitals: normal genitalia Back: normal inspection, normal range of motion, no vertebral tenderness Extremities: normal range of motion, no ligament instability Neurologic/Psych: no motor/sensory deficits, awake, alert, oriented x 3, normal gait, normal mood/affect, superintendent pressure II-XII nml as tested Skin: intact, normal color, warm/dry Core Measures ACS in differential dx? No Sepsis Present: No Sepsis Focused Exam Completed? No Progress Differential Diagnosis: bowel obstruction, ischemic bowel, inflamm bowel dis, pancreatitis, SBO Plan of Care: Orders Procedure Date/time Status LACTIC ACID 12/19 1053 Active Admit to inpatient 12/19 1026 Active NGT 12/19 1022 Active PARTIAL THROMBOPLASTIN TIME 12/19 752 Active PROTHROMBIN TIME 12/19 752 Active LIPASE 12/19 752 Complete COMPREHENSIVE METABOLIC PANEL 12/19 752 Complete CBC WITHOUT DIFFERENTIAL 12/19 752 Complete EKG 12/19 752 Active Current Medications Sig/Lacho Start time Last Medication Dose Stop Time Status Admin Sodium Chloride 1,000 ML BOLUS ONE 12/19 1030 AC (Normal Saline 0.9%) 12/19 1129 Laboratory Tests 12/19/17 1007: PT Pending, INR Pending, APTT Pending 12/19/17 0822: Anion Gap 13, Estimated GFR 54 L, BUN/Creatinine Ratio 15.4, Glucose 231 H, Calcium 10.5 H, Total Bilirubin 1.8 H, AST 35, ALT 50, Alkaline Phosphatase 80 , Total Protein 8.4 H, Albumin 4.8, Globulin 3.6, Albumin/Globulin Ratio 1.3, Lipase 58, CBC w Diff MAN DIFF ORDERED, RBC 4.96, MCV 87.5, MCH 29.8, MCHC 34.0, RDW 16.1 H, MPV 9.5, Gran % 91.1 H, Lymphocytes % 5.4 L, Monocytes % 2.6, Eosinophils % 0.9, Basophils % 0, Absolute Granulocytes 11.1 H, Segmented Neutrophils 82 H, Band Neutrophils 7 H, Absolute Lymphocytes 0.7 L, Lymphocytes 8 L, Monocytes 3, Absolute Monocytes 0.3, Absolute Eosinophils 0.1, Absolute Basophils 0, Platelet Estimate ADEQUATE, Normocytic RBCs VERIFIED, Normochromic RBCs VERIFIED Diagnostic Imaging: Viewed by Me: CT Scan. Discussed w/RAD: CT Scan. Radiology Impression: There is total colectomy with right lower quadrant ileostomy. There are multiple dilated small bowel loops with air-fluid level and mildly dilated stomach with source of obstruction in the ileostomy. There are several small bowel loops coiled in the ileostomy either a parastomal hernia or narrowing or stricture within the existing small bowel loop. Similar findings were noted on the previous exam 10/29/2017. This area can be evaluated with fluoroscopy guided retrograde Gastrografin enema through the ostomy. Nonobstructive small radiopaque calculi lower pole right kidney Initial ED EKG: normal intervals, normal p-waves, normal QRS complex, normal sinus rhythm, nonspecific ST T wave chg, motion artifact Prior EKG: changed Rhythm Strip: normal sinus rhythm Departure Departure Disposition: STILL A PATIENT Condition: Fair Clinical Impression Primary Impression: SBO (small bowel obstruction) Secondary Impressions: Acute prerenal azotemia, Hyperkalemia Referrals: Fracisco HUMMEL,Jennifer Avery (PCP/Family) Departure Forms: Customer Survey General Discharge Information Admission Note Spoke With: Sean HUMMEL,Rd [place] Documentation of Exam: Documentation of any treatments & extenuating circumstances including Concerns Regarding Discharge (functional status, medication knowledge or non-compliance, living conditions, etc.) that warrant an admission rather than observation: Nothing by mouth IV fluid NG tube suctioning serial lab exam medication adjustment surgical evaluation continuing care discharge planning. Critical Care Note Critical Care Note Critical Care Time: 30-74 min (45)
[2017-12-19 08:52] LABS: ABSOLUTE BASOPHIL COUNT 0 /CUMM (0.0-0.2); ABSOLUTE EOSINOPHIL COUNT 0.1 /CUMM (0.0-0.7); ABSOLUTE GRANULOCYTE CT 11.1 /CUMM (1.4-6.5); ABSOLUTE LYMPH COUNT 0.7 /CUMM (1.2-3.4); ABSOLUTE MONOCYTE COUNT 0.3 /CUMM (0.10-0.60); BASOPHIL % 0 % (0.0-2.0); EOSINOPHIL % 0.9 % (0-5); GRANULOCYTE % 91.1 % (42.2-75.2); HEMATOCRIT 43.4 % (42-52); MEAN CORPUSCULAR HGB 29.8 PG (27.0-31.0); MEAN CORPUSCULAR VOLUME 87.5 FL (80.0-94.0); MEAN PLATELET VOLUME 9.5 FL (7.4-10.4); PLATELET COUNT 200 /CUMM (130-400); RBC DISTRIBUTION WIDTH 16.1 % (11.5-14.5); RED BLOOD CELL CT 4.96 /CUMM (4.70-6.10); WHITE BLOOD CELL COUNT 12.2 /CUMM (4.8-10.8)
--- NOTE | 2017-12-19 10:08 | CT SCAN REPORT ---
EXAMINATION: CT ABDOMEN AND PELVIS WITH CONTRAST CLINICAL INFORMATION: History of colectomy/ileostomy, Crohn's disease with nausea, vomiting and distention. COMPARISON: CT abdomen and pelvis 10/31/2017 TECHNIQUE: Multidetector volumetric imaging was performed of the abdomen and pelvis following IV administration of 95 mL of Optiray 320 intravenous contrast. Sagittal and coronal reformatted images were obtained on the technologist's workstation. DLP: 508 mGy-cm FINDINGS: LUNG BASES: There is dependent right basilar atelectasis. The heart size is normal. There are coronary artery calcifications present. LIVER, GALLBLADDER, AND BILIARY TREE: The liver is normal in size, shape, and mild attenuation. No focal hepatic lesion or biliary ductal dilatation is present. The gallbladder is unremarkable with no evidence of radiopaque gallstones, gallbladder wall thickening, or obvious pericholecystic inflammatory changes. PANCREAS: Unremarkable. SPLEEN: Unremarkable. ADRENAL GLANDS: Unremarkable. KIDNEYS AND URETERS: The kidneys are normal in size, shape, and attenuation. A 4 mm nonobstructive radiopaque calculi and a small cyst visualized in lower pole right kidney. No additional radiopaque calculi seen. No perinephric stranding. BLADDER: Unremarkable. GASTROINTESTINAL TRACT: There is total colectomy with right lower quadrant ileostomy. There are multiple dilated small bowel loops with air-fluid level extending all the way to the right ileostomy. There is kinking, stricture or secondary narrowing of small bowel loop within the ileostomy. This could be from too many small bowel loop segments within ostomy or parastomal small bowel herniation. A similar findings was seen on the previous CT 10/31/2017. A revision of this area may be needed. The stomach is distended with fluid. ABDOMINAL WALL: Right lower quadrant ileostomy as described above. LYMPH NODES: Normal. And a cyst VASCULAR: Unremarkable. PELVIC VISCERA: Unremarkable. OSSEOUS STRUCTURES: There are degenerative disc changes and vacuum disc phenomena L5-S1, L4-L5 and T11-T12 disc levels. Moderate bilateral facet joint arthropathy and hypertrophy L4-L5 and L5/S1 disc levels is noted. IMPRESSION: There is total colectomy with right lower quadrant ileostomy. There are multiple dilated small bowel loops with air-fluid level and mildly dilated stomach with source of obstruction in the ileostomy. There are several small bowel loops coiled in the ileostomy either a parastomal hernia or narrowing or stricture within the existing small bowel loop. Similar findings were noted on the previous exam 10/29/2017. This area can be evaluated with fluoroscopy guided retrograde Gastrografin enema through the ostomy. Nonobstructive small radiopaque calculi lower pole right kidney
[2017-12-19 10:56] LABS: PT 11.9 SEC (9.4-12.5); PTT 25 SEC (25-37)
--- NOTE | 2017-12-19 12:18 | PN- Student ---
Subjective Subjective: HPI: 77 y/o M w/ PMH of IBD (likely Crohn's) and colon cancer s/p ileostomy and total colectomy presents w/ 1 day of RLQ pain, nausea, and vomiting. Pain started while he was outside cutting branches, where he said he was bending over and bracing objects against his abdomen. He initially felt soreness, which increased in intensity and has been a constant pain with no radiation. Pain alleviated w/ hot compress and massage, pain was not helped by resting or eating (last ate yesterday). Pain currently at 5/10 (810 before pain meds). PMH: Inflammatory bowel disease, colon cancer, hypertension, hyperlipidemia, pre -diabetes. PSH: Ileostomy and total colectomy Meds: Reviewed Allergies: Dipentum (Olsalazine), Sulfasalazine FamilyHx: Crohn's disease in aunt, maternal cousins. Heart disease and diabetes in mother and father. SocialHx: 52 PYH of smoking, quit 1979. Social EtOH (). No recr drugs. Retired. Objective Objective: Vitals: Stable, hypertensive I/O: 1000/660 I: IV 1000 I: Oral 0 O: NG tube 560 O: Stool 100 Exam: Gen: Pt appears weak, in pain, resting on stretcher, speaks softly HEENT: PERRL, anisocoria BL, NG tube in place, oral mucosa moist Cardiac: RRR, no M, R, G Lungs: CTA BL Abdomen: Tympanitic and tender to palpation in LUQ, NG suction sounds auscultated. No bowel sounds otherwise. No rebound tenderness. Abdomen is distended throughout. Hernia appreciated lateral to ostomy site in RLQ. Fluid present in ileostomy bag. Labs: CBC: elevated WBCs (absolute, neutrophils, and bands) Chemistry: NAGMA, hyponatremia, hyperkalemia, hypercalcemia, hyperbilirubinemia , elevated Cr, hyperglycemia. Coagulation: normal ED EKG: normal intervals, normal p-waves, normal QRS complex, normal sinus rhythm, nonspecific ST T wave changes, motion artifact Prior EKG: changed Rhythm strip: normal sinus rhythm Imaging: Dilated loops of small bowel throughout w/ air fluid levels. Mildly dilated stomach. Source of obstruction in the ileostomy. Several small bowel loops coiled in the ileostomy with either parastomal hernia or narrowing or stricture within the existing small bowel loop. Nonobstructive small radioopaque calculi lower pole R kidney. Assessment/Plan Assessment: Pt is a 77 y/o M w/ PMH of IBD and colon cancer s/p ileostomy and total colectomy who presents w/ acute abdominal pain, nausea, and vomiting consistent w/ acute small bowel obstruction at ileostomy site likely secondary to parastomal hernia. Pt is currently stable w/ BETO and hyperkalemia. Neuro: Pain managed w/ 2mg IV morphine and 1000mg IV acetaminophen Cardiac: IVF D5W NS 1000mL Q8H at 125mL/hr. Home BP meds (amlodipine 5mg, atenolol 50mg, ramipril 10mg). Lungs: on room air GI: NPO, NG tube in place draining gastric fluid and occasional blood. Protonix GI prophylaxis 40mg daily. : currently on independent urination Heme: subQ heparin 5000U for tonight Q8hrs Dispo/other: NPO w/ NG tube in place until obstruction relieved F/u labs this afternoon
[2017-12-19 14:29] VITALS: BP 152/64
[2017-12-19 21:16] VITALS: BP 132/58
[2017-12-20 06:37] VITALS: BP 122/56
[2017-12-20 08:16] LABS: ABSOLUTE BASOPHIL COUNT 0 /CUMM (0.0-0.2); ABSOLUTE EOSINOPHIL COUNT 0.3 /CUMM (0.0-0.7); ABSOLUTE GRANULOCYTE CT 4.2 /CUMM (1.4-6.5); ABSOLUTE LYMPH COUNT 1.2 /CUMM (1.2-3.4); ABSOLUTE MONOCYTE COUNT 0.7 /CUMM (0.10-0.60); BASOPHIL % 0.1 % (0.0-2.0); EOSINOPHIL % 5.1 % (0-5); GRANULOCYTE % 64.8 % (42.2-75.2); HEMATOCRIT 38.7 % (42-52); MEAN CORPUSCULAR HGB 30.2 PG (27.0-31.0); MEAN CORPUSCULAR HGB CONC 34.5 G/DL (33.0-37.0); MEAN CORPUSCULAR VOLUME 87.5 FL (80.0-94.0); MEAN PLATELET VOLUME 9.1 FL (7.4-10.4); PLATELET COUNT 187 /CUMM (130-400); RBC DISTRIBUTION WIDTH 15.8 % (11.5-14.5); RED BLOOD CELL CT 4.43 /CUMM (4.70-6.10); WHITE BLOOD CELL COUNT 6.5 /CUMM (4.8-10.8)
--- NOTE | 2017-12-20 09:20 | PN- General Surgery ---
See Addendum Subjective Subjective: feeling better, "keep filling up my bag", voiding though notes it to be small amount and "very yellow"- not recorded overnight. no n/v, hungry. Objective Vital Signs and I&Os Vital Signs Date Time Temp Pulse Resp B/P B/P Pulse O2 O2 Flow FiO2 Mean Ox Delivery Rate 12/20 0537 98.9 75 20 122/56 97 12/19 2116 98.4 77 20 132/58 97 Room Air 12/19 1429 97.6 80 18 152/64 100 Room Air 12/19 1248 99.2 78 22 137/65 96 Room Air 12/19 1129 97.8 76 20 142/71 99 Room Air Intake & Output 12/20 1600 12/20 0812/20 0000 12/19 1600 12/19 0000 Intake Total 1000 1025 2000 0 Output Total 2075 3000 880 Balance -1075 -1974 1120 0 Intake, IV 1000 1025 2000 Intake, Oral 0 Output, 250 200 680 Gastric Drainage Output, Stool 1825 2350 100 Output, Urine 450 100 Patient 190 lb 190 lb Weight Weight Bed scale Reported by Patient Measurement Method Physical Exam: IVF running at 125 ost out: 200+ full bag since 7am/1825 night/2350 rafa, liquid watery stool ngt out: 250night, 200 rafa uo- nr overnight, 450 rafa gen- nad card-s1s2 rrr pulm- ctab abd- soft, nt, stoma pink and functioning, full bag liquid stool ext- calves soft nt bl Results Last 48 Hours of Labs: Laboratory Tests 12/20 12/19 12/19 12/19 0755 2014 2015 1007 Chemistry Sodium (137 - 145 mmol/L) 136 L 135 L Potassium (3.5 - 5.1 mmol/L) 4.8 5.0 Chloride (98 - 107 mmol/L) 106 104 Carbon Dioxide (22 - 30 mmol/L) 19 L 18 L Anion Gap (5 - 16) 11 13 BUN (9 - 20 mg/dL) 25 H 21 H Creatinine (0.7 - 1.2 mg/dL) 1.3 H 1.2 Estimated GFR (>60 ml/min) 54 L 59 L BUN/Creatinine Ratio (7 - 25 %) 19.2 17.5 Glucose (65 - 99 mg/dL) 165 H 164 H Lactic Acid (0.7 - 2.1 mmol/L) 1.9 2.3 H Calcium (8.4 - 10.2 mg/dL) 9.6 Phosphorus (2.5 - 4.5 mg/dL) 3.1 Magnesium (1.6 - 2.3 mg/dL) 2.0 1.8 Total Bilirubin (0.2 - 1.3 mg/dL) 1.6 H Direct Bilirubin (< 0.4 mg/dL) 0.3 AST (17 - 59 U/L) 33 ALT (21 - 72 U/L) 36 Alkaline Phosphatase (< 127 U/L) 49 Total Protein (6.3 - 8.2 g/dL) 7.2 Albumin (3.5 - 5.0 g/dL) 4.0 Coagulation PT (9.4 - 12.5 SEC) 11.9 INR (0.90 - 1.17) 1.09 APTT (25 - 37 SEC) 25 Hematology CBC w Diff NO MAN DIFF REQ WBC (4.8 - 10.8 /CUMM) 6.5 RBC (4.70 - 6.10 /CUMM) 4.43 L Hgb (14.0 - 18.0 G/DL) 13.4 L Hct (42 - 52 %) 38.7 L MCV (80.0 - 94.0 FL) 87.5 MCH (27.0 - 31.0 PG) 30.2 MCHC (33.0 - 37.0 G/DL) 34.5 RDW (11.5 - 14.5 %) 15.8 H Plt Count (130 - 400 /CUMM) 187 MPV (7.4 - 10.4 FL) 9.1 Gran % (42.2 - 75.2 %) 64.8 Lymphocytes % (20.5 - 51.1 %) 18.8 L Monocytes % (1.7 - 9.3 %) 11.2 H Eosinophils % (0 - 5 %) 5.1 H Basophils % (0.0 - 2.0 %) 0.1 Absolute Granulocytes (1.4 - 6.5 /CUMM) 4.2 Absolute Lymphocytes (1.2 - 3.4 /CUMM) 1.2 Absolute Monocytes (0.10 - 0.60 /CUMM) 0.7 H Absolute Eosinophils (0.0 - 0.7 /CUMM) 0.3 Absolute Basophils (0.0 - 0.2 /CUMM) 0 / 0822 Chemistry Sodium (137 - 145 mmol/L) 133 L Potassium (3.5 - 5.1 mmol/L) 5.5 H Chloride (98 - 107 mmol/L) 100 Carbon Dioxide (22 - 30 mmol/L) 20 L Anion Gap (5 - 16) 13 BUN (9 - 20 mg/dL) 20 Creatinine (0.7 - 1.2 mg/dL) 1.3 H Estimated GFR (>60 ml/min) 54 L BUN/Creatinine Ratio (7 - 25 %) 15.4 Glucose (65 - 99 mg/dL) 231 H Calcium (8.4 - 10.2 mg/dL) 10.5 H Total Bilirubin (0.2 - 1.3 mg/dL) 1.8 H AST (17 - 59 U/L) 35 ALT (21 - 72 U/L) 50 Alkaline Phosphatase (< 127 U/L) 80 Total Protein (6.3 - 8.2 g/dL) 8.4 H Albumin (3.5 - 5.0 g/dL) 4.8 Globulin (1.9 - 4.2 gm/dL) 3.6 Albumin/Globulin Ratio (1.1 - 2.2 %) 1.3 Lipase (23 - 300 U/L) 58 Hematology CBC w Diff MAN DIFF ORDERED WBC (4.8 - 10.8 /CUMM) 12.2 H RBC (4.70 - 6.10 /CUMM) 4.96 Hgb (14.0 - 18.0 G/DL) 14.8 Hct (42 - 52 %) 43.4 MCV (80.0 - 94.0 FL) 87.5 MCH (27.0 - 31.0 PG) 29.8 MCHC (33.0 - 37.0 G/DL) 34.0 RDW (11.5 - 14.5 %) 16.1 H Plt Count (130 - 400 /CUMM) 200 MPV (7.4 - 10.4 FL) 9.5 Gran % (42.2 - 75.2 %) 91.1 H Lymphocytes % (20.5 - 51.1 %) 5.4 L Monocytes % (1.7 - 9.3 %) 2.6 Eosinophils % (0 - 5 %) 0.9 Basophils % (0.0 - 2.0 %) 0 Absolute Granulocytes (1.4 - 6.5 /CUMM) 11.1 H Segmented Neutrophils (42.2 - 75.2 %) 82 H Band Neutrophils (0.0 - 5.0 %) 7 H Absolute Lymphocytes (1.2 - 3.4 /CUMM) 0.7 L Lymphocytes (20.5 - 51.1 %) 8 L Monocytes (1.7 - 9.3 %) 3 Absolute Monocytes (0.10 - 0.60 /CUMM) 0.3 Absolute Eosinophils (0.0 - 0.7 /CUMM) 0.1 Absolute Basophils (0.0 - 0.2 /CUMM) 0 Platelet Estimate (ADEQUATE) ADEQUATE Normocytic RBCs VERIFIED Normochromic RBCs VERIFIED Assessment/Plan Assessment/Plan A- 77M with resolving SBO r/t parastomal hernia, sp distant total colectomy, now with high ostomy output and continued BETO. P- STRICT I&Os- discussed w RN ?dc or clamp ngt, diet? NS bolus now, then continue maintenance fluids cont home meds oob, ambulate, hepsq will dw attending also- no H&P? Core Measures Venous Thromboembolism VTE Risk Factors Age>40 No Mechanical VTE Prophylaxis d/t N/A MechProphylax Ordered No VTE Pharm Prophylaxis d/t NA PharmProphylax ordered
[2017-12-20 14:00] VITALS: BP 122/52
--- NOTE | 2017-12-20 14:53 | History & Physical Pre-Op ---
General Information and HPI History of Present Illness: Subjective: HPI: 77 y/o M w/ PMH of IBD (likely Crohn's) and colon cancer s/p ileostomy and total colectomy presents w/ 1 day of RLQ pain, nausea, and vomiting. Pain started while he was outside cutting branches, where he said he was bending over and bracing objects against his abdomen. He initially felt soreness, which increased in intensity and has been a constant pain with no radiation. Pain alleviated w/ hot compress and massage, pain was not helped by resting or eating (last ate yesterday). Pain currently at 08/19 (11/19 before pain meds). Allergies/Medications Allergies: Coded Allergies: Sulfa (Sulfonamide Antibiotics) (RASH PER PT 10/31/17) Home Med list Amlodipine Besylate 5 MG TABLET 1 TAB PO DAILY HIGH BLOOD PRESSURE (Reported) Aspirin (Aspirin*) 81 MG TAB.CHEW 1 TAB PO DAILY HEART HEALTH (Reported) Atenolol 50 MG TABLET 1 TAB PO DAILY HIGH BLOOD PRESSURE (Reported) Cyanocobalamin (Vitamin B-12) 1,000 MCG TABLET 1 TAB PO DAILY VITAMIN SUPPORT (Reported) Ergocalciferol (Vitamin D2) (Vitamin D2) 50,000 UNIT CAPSULE 1 CAP PO QW VITAMIN SUPPORT (Reported) Folic Acid 1 MG TABLET 1 TAB PO DAILY VITAMIN SUPPORT (Reported) Methotrexate 2.5 MG TABLET 6 TAB PO QW BOWEL HEALTH (Reported) Omeprazole 40 MG CAPSULE.DR 1 CAP PO DAILY ACID REFLUX (Reported) Pyridoxine HCl (Vitamin B-6) 50 MG TABLET 1 TAB PO DAILY VITAMIN SUPPORT ( Reported) Ramipril 10 MG CAPSULE 1 CAP PO DAILY HIGH BLOOD PRESSURE (Reported) Simvastatin (Simvastatin*) 40 MG TABLET 1 TAB PO QPM HIGH CHOLESTROL ( Reported) Tamsulosin HCl 0.4 MG CAP.ER.24H 1 CAP PO DAILY BPH (Reported) Past History Medical History Neurological: NONE EENT: NONE Cardiovascular: hypertension, hyperlipidemia, QUAD BYPASS 2002 Respiratory: NONE Gastrointestinal: Crohn's disease, ulcerative colitis, ILLEOSTOMY Hepatic: NONE Renal: NONE Musculoskeletal: NONE Psychiatric: NONE Endocrine: NONE Blood Disorders: NONE Cancer(s): NONE AUTO TECH/Reproductive: NONE History of MRSA: No History of VRE: No History of CDIFF: No Isolation History: Standard Surgical History Pertinent Surgical History: total proctocolectomy with ileostomy Past Family/Social History Psychosocial History Who Do You Live With? spouse Services at Home None Primary Language: Nicaraguan Smoking Status: Never Smoked Functional Ability ADLs Independent: dressing, eating, toileting, bathing. Ambulation: independent Review of Systems Review of Systems: no cp, no olea, abd pain per hpi. remainder 12 neg Exam & Diagnostic Data Last 24 Hrs of Vital Signs/I&O Vital Signs Date Time Temp Pulse Resp B/P B/P Pulse O2 O2 Flow FiO2 Mean Ox Delivery Rate 12/20 1400 97.6 72 16 122/52 100 Room Air 12/20 925 74 164/60 12/20 925 74 124/60 12/20 925 74 124/60 12/20 0637 98.9 75 20 122/56 97 12/19 2116 98.4 77 20 132/58 97 Room Air Intake & Output 12/20 1600 12/20 0800 12/20 0000 Intake Total 2004 1000 1025 Output Total 1775 2075 3000 Balance 230 -1075 -1975 Intake, IV 1825 1000 1025 Intake, Oral 180 Output, 175 250 200 Gastric Drainage Output, Stool 1300 1825 2350 Output, Urine 300 450 Physical Exam: Exam: Gen: Pt appears weak, in pain, resting on stretcher, speaks softly HEENT: PERRL, anisocoria BL, NG tube in place, oral mucosa moist Cardiac: RRR, no M, R, G Lungs: CTA BL Abdomen: Tympanitic and tender to palpation in LUQ, NG suction sounds auscultated. No bowel sounds otherwise. No rebound tenderness. Abdomen is distended throughout. Hernia appreciated lateral to ostomy site in RLQ. Fluid present in ileostomy bag. Last 24 Hrs of Labs/Naveed: Laboratory Tests 12/20/17 0755: Anion Gap 11, Estimated GFR 54 L, BUN/Creatinine Ratio 19.2, Glucose 165 H, Lactic Acid 1.9, Magnesium 2.0, Total Bilirubin 1.6 H, Direct Bilirubin 0.3, AST 33, ALT 36, Alkaline Phosphatase 49, Total Protein 7.2, Albumin 4.0, CBC w Diff NO MAN DIFF REQ, RBC 4.43 L, MCV 87.5, MCH 30.2, MCHC 34.5, RDW 15.8 H, MPV 9.1, Gran % 64.8, Lymphocytes % 18.8 L, Monocytes % 11.2 H, Eosinophils % 5.1 H, Basophils % 0.1, Absolute Granulocytes 4.2, Absolute Lymphocytes 1.2, Absolute Monocytes 0.7 H, Absolute Eosinophils 0.3, Absolute Basophils 0 12/19/172014: Lactic Acid 2.3 H 12/19/17 2015: Anion Gap 13, Estimated GFR 59 L, BUN/Creatinine Ratio 17.5, Glucose 164 H, Calcium 9.6, Phosphorus 3.1, Magnesium 1.8 Assessment/Plan Assessment/Plan: parastoma hernia with incarceration and obstruction. Recurrent after medical management two months ago. instructed patient to go to his surgeon for repair but he neglected to do so due to proximity. I have reduced his hernia once again. suspect resolution of sbo soon. plan operative repair this admission with bowel obstruction resolved. As Ranked By This Provider Problem List: 1. 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 Copies To: Fracisco HUMMEL,Jennifer Avery
[2017-12-20 21:50] VITALS: BP 136/68
[2017-12-21 06:40] VITALS: BP 140/60
--- NOTE | 2017-12-21 10:40 | PN- General Surgery ---
See Addendum Subjective Subjective: No complaints. Ongoing ileostomy output. No dizziness. No shortness of breath. No chest pains. Anticipates surgery tomorrow for parastomal hernia repair by . Objective Vital Signs and I&Os Vital Signs Date Time Temp Pulse Resp B/P B/P Pulse O2 O2 Flow FiO2 Mean Ox Delivery Rate 12/21 0846 71 140/60 12/21 0846 71 140/60 12/21 0846 71 140/60 12/21 0640 97.7 71 20 140/60 98 Room Air 12/20 2150 98.1 83 16 136/68 94 Room Air 12/20 1400 97.6 72 16 122/52 100 Room Air Intake & Output 12/21 1600 12/21 0800 12/21 0000 12/20 1600 12/20 0800 12/20 0000 Intake Total 1000 1780 2005 1000 1025 Output Total 175 1625 1525 1775 2075 3000 Balance -175 -625 255 230 -1075 -1975 Intake, IV 1000 1000 1825 1000 1025 Intake, Oral 780 180 Output, 175 250 200 Gastric Drainage Output, Stool 4114 389 5572 1825 2350 Output, Urine 175 300 575 300 450 Physical Exam: General - alert & oriented x 3. comfortable. no acute distress. Lungs - clear bilaterally. no w/r/r. Cardiac - s1s2. reg. Abdomen - soft. bowel sounds appreciated. ileostomy moist & pink, with output of about 1L / shift. unchanged parastomal hernia, nontender. Extremities - warm bilaterally. no c/c/e. calves soft and nontender b/l. Assessment/Plan Assessment/Plan This 77 year old male with hx htn, gerd, IBD, hx colon cancer s/p colectomy / ileostomy, presented with parastoma hernia with incarceration and sbo, with resolution of obstruction but awaiting surgical repair of his known parastomal hernia continue fulls as tolerated. npo after midnight resume iv fluids at midnight replete phos f/u lytes this afternoon accuchecks / ss coverage hep sc - dvt ppx home meds ordered OR tomorrow with for parastomal hernia repair d/w Core Measures Venous Thromboembolism VTE Risk Factors Age>40 No Mechanical VTE Prophylaxis d/t N/A MechProphylax Ordered No VTE Pharm Prophylaxis d/t NA PharmProphylax ordered
[2017-12-21 14:40] VITALS: BP 126/50
[2017-12-21 21:27] VITALS: BP 128/55
[2017-12-22 06:40] VITALS: BP 150/67
[2017-12-22 10:03] VITALS: BP 144/64
--- NOTE | 2017-12-22 13:42 | Operative Report ---
Operative/Inv Procedure Report Surgery Date: 12/22/17 Name of Procedure: Robotic assisted laparoscopic parastomal hernia repair with mesh Pre-Operative Diagnosis: Parastomal hernia with intestinal obstruction Post-Operative Diagnosis: Same Estimated Blood Loss: scant Surgeon/Bowling Teacher: Sean HUMMEL,Rd Peralta/Emilie GOULD Anesthesia: general endotracheal tube Implants: Basehor bio a mesh Operative Indication: 77-year-old male with recurrent small bowel obstruction related to intermittently incarcerating parastomal hernia. The stoma hernia was reduced thus relieving his bowel obstruction. He now presents for semi-elective repair. Operative/Procedure Note Note: After consent is brought to the operating room laid supine. General anesthesia was obtained and his abdomen was prepped and draped. The stoma appliance was left in place and excluded from the operative field with sterile drapes. Skin the left upper quadrant was able to local anesthesia and transverse incision made sharply. We placed a 12 mm optical trocar at Coy's point. Pneumoperitoneum was achieved. 2, 8 mm ports are placed in the left lower quadrant after local anesthesia was instilled under direct vision a camera. Robot was then docked and instruments passed under direct vision a camera. I broke scrub and went to the console. The abdomen was explored. There was no significant adhesive disease. The terminal ileum was run up to the proximal jejunum without evidence of mechanical obstruction due to adhesions. The stoma site looked well. It was larger than it should be but not significantly so. There is a moderate sized hernia sac with redundant loop of ileum in it. We reduced it. There is evidence of prior compressive disease from a parastomal hernia on the mesentery. None of the bowel in the abdomen looked to be recently obstructed. It was unclear if the hernia was peristomal nature or due to prolapsing of redundant ileum into the site. I seem to favor the latter as the etiology. Due to the small size the hernia defect I decided against performing a Sugarbaker repair with large onlay of mesh. I took down the peritoneum around the mesenteric border of the stoma. This was the area where there was more dilatation of the fascia. The hernia sac was delivered from within the subcutaneous tissues with scissor cautery. I then elected to close the defect primarily with running 0V lock permanent suture. This snugged up the defect without making it too tight. I then placed an underlay of Basehor bio a mesh over the closure site. It was anchored with 20V lock absorbable sutures. It was anchored to the fascial closure as well as circumferentially around the edges. Once I was happy with the placement of mesh I elected to pack see the stoma site to the fascia. It appeared that part of the reason for the hernia was that no adhesive disease performed around the edges of the fascia to the small bowel. Therefore was pexied circumferentially with 3-0 Vicryl sutures. We then extracted all the needles passed them off the field. The ports were extracted and pneumoperitoneum evacuated. The fascia and left upper quadrant was closed with 0 Vicryl suture. Skin incisions closed with 4-0 Vicryl. Steri-Strips and sterile dressing were applied. Sponge and needle counts are correct. CC: Fracisco HUMMEL,Jennifer Avery
[2017-12-22 15:30] VITALS: BP 138/70
--- NOTE | 2017-12-22 16:00 | PN- Student ---
Vanessa Valle 12/22/17 1523: Subjective Subjective: 77 yo m s/p parastomal hernia repair admitted from the PACU. Pt is laying awake in bed, AOx4, and reports 8/10 pain at incision sites with movement. No complaints otherwise. Denies SOB, chest pain, fever, headache or nausea. Objective Results Results: Laboratory Tests 12/21 1635 Chemistry Sodium (137 - 145 mmol/L) 137 Potassium (3.5 - 5.1 mmol/L) 3.9 Chloride (98 - 107 mmol/L) 107 Carbon Dioxide (22 - 30 mmol/L) 21 L Anion Gap (5 - 16) 9 BUN (9 - 20 mg/dL) 12 Creatinine (0.7 - 1.2 mg/dL) 1.0 Estimated GFR (>60 ml/min) > 60 BUN/Creatinine Ratio (7 - 25 %) 12.0 Phosphorus (2.5 - 4.5 mg/dL) 2.9 Orders Procedure Date/time Status Clear Liquid Diet 12/22 D Active Vital Signs Date Time Temp Pulse Resp B/P B/P Pulse O2 O2 Flow FiO2 Mean Ox Delivery Rate 12/22 1003 84 144/66 12/22 1003 86 144/64 12/22 0640 98.3 78 20 150/67 100 Room Air 12/21 2127 98.0 73 20 128/55 100 Room Air Intake & Output 12/22 1600 12/22 0800 12/22 0000 Intake Total 800 640 Output Total 500 1900 550 Balance -500 -1100 90 Intake, IV 800 400 Intake, Oral 240 Output, Stool 100 1050 400 Output, Urine 400 850 150 Patient 190 lb Weight Current Medications Sig/Lacho Start time Last Medication Dose Route Stop Time Status Admin Acetaminophen 1,000 MG Q6P PRN 12/19 1145 AC N/A 1 UNIT IV Amlodipine Besylate 5 MG DAILY 12/20 899 AC 12/21 PO 0846 Atenolol 50 MG DAILY 12/20 899 AC 12/22 PO 1003 Dextrose/Sodium 1,000 ML Q10H 12/21 1900 AC 12/22 Chloride IV 0508 Fentanyl Citrate 0 .STK-MED ONE 12/22 1055 DC .ROUTE Heparin Sodium 5,000 UNIT Q8 12/19 2200 AC 12/22 (Porcine) SC 0505 Hydromorphone HCl 0 .STK-MED ONE 12/22 1431 DC .ROUTE Hydromorphone HCl 0 .STK-MED ONE 12/22 1411 DC .ROUTE Insulin Aspart 0 TIDAC 12/21 0800 DC 12/21 SC 1723 Insulin Aspart 0 AT BEDTIME 12/20 2100 AC SC Insulin Human Regular 0 Q6 12/21 2359 AC 12/22 SC 0513 Midazolam HCl 0 .STK-MED ONE 12/22 1055 DC .ROUTE Morphine Sulfate 2 MG Q4P PRN 12/22 1345 AC IV Morphine Sulfate 4 MG Q4P PRN 12/22 1345 AC IV Ondansetron HCl 4 MG Q6P PRN 12/19 1600 AC 12/19 IV 1609 Oxycodone/ 1 TAB Q4P PRN 12/22 1345 AC Acetaminophen PO Oxycodone/ 2 TAB Q4P PRN 12/22 1345 AC Acetaminophen PO Pantoprazole Sodium 40 MG DAILY 12/19 1145 AC 12/21 IV 0845 Patient Medication 1 ED ONE ONE 12/21 194 DC 12/21 Teaching ED 12/21 1945 202 Phosphate 250 MG PC AND AT BEDTIME 12/21 1300 AC 12/21 PO 2021 Sodium Chloride 1,000 ML Q8H 12/21 2200 CAN IV Tamsulosin HCl 0.4 MG DAILY 12/19 1145 12/21 PO 0846 PE: Gen: elderly male, laying in bed uncomfortable due to post-op pain, conversant, AOx4 CV: RRR, S1,S2 crisp, no m/r/g Pulm: increased work of breath, vesicular b/l from ant. lung garcia Abd: Distended, appropriately tender, incision sites clean, dry, intact, ileostomy bag filled with soft brown/gallego stool. Ext: Pulses +2 b/l dorsalis pedis, no pitting edema Assessment/Plan Assessment: 77 yo male w/ pmhx of IBD, colon cancer, GERD, and HTN s/p colostomy/ileostomy POD#0 s/p parastomal hernia repair currently stable. Plan: Pain management, begin morphine sulphate 4mg q 4 prn and percocet q 4 prn Start clear liquid diet and advance diet as tolerated OOB, encourage incentive spirometry Cont. maintenance IVFs, D5, 1/2NS, trending I&O's and checking vitals and BMP Resume home meds Dressing change POD #2 Cont. DVT prophylaxis LMWH Abdullahi Garcia 12/22/17 4688: Assessment/Plan Plan: Postop check. Seen and evaluated with MS3. Agree with above. Reports pain in epigastric region and shakiness. On exam, resting comfortably in nad, no trembling noted, abdomen is softly distended, left lateral dressings x3 in place , ostomy with old stool in bag, no hernia appreicated, moderately tender in epigastric region, no rebound or guarding noted. s/p robotic parastomal hernia repair w/ mesh. Cont clears, IVF, analgesics, ice pack prn, resume home meds, encourage IS, ambulation, labs in am.
[2017-12-22 22:39] VITALS: BP 106/63
[2017-12-23 06:59] VITALS: BP 132/58
--- NOTE | 2017-12-23 07:30 | PN- General Surgery ---
See Addendum Subjective Subjective: Patient reports incisional pain, he reports gas in his ostomy bag. He continues to void. He states he wants to get up and ambulate. Reports shakiness resolves. He is tolerating clears without nausea or vomiting. Objective Vital Signs and I&Os Vital Signs Date Time Temp Pulse Resp B/P B/P Pulse O2 O2 Flow FiO2 Mean Ox Delivery Rate 12/23 0659 97.5 72 20 132/58 100 Room Air 12/22 2239 97.5 85 20 106/63 98 Room Air 12/22 1608 82 138/70 12/22 1607 82 138/70 12/22 1600 95 Room Air 12/22 1530 94.2 82 16 138/70 95 Room Air 12/22 1003 84 144/66 12/22 1003 86 144/64 Intake & Output 12/23 0000 12/22 1600 12/22 0800 12/22 0000 12/21 1600 Intake Total 920 600 418 233 8979 Output Total 450 6110 786 5920 550 1350 Balance 470 -875 -500 -1100 90 -230 Intake, IV 800 400 800 400 500 Intake, Oral 120 200 240 620 Output, Stool 50 100 1050 400 700 Output, Urine 450 1425 400 850 150 650 Patient 190 lb Weight Physical Exam: Gen - resting comfortable in bed in nad Cardiac - S1S2 noted Lungs - crackles at bases B/L Abd - soft, nondistended, +bs, dressings c/d/i, stoma pink, patent with gas and bilious stool, dull to percussion, appropriately tender suomya-incisionally, no rebound or guarding noted Ext - no edema or calf pain Current Medications: Current Medications Sig/Lacho Start time Last Medication Dose Route Stop Time Status Admin Acetaminophen 1,000 MG Q6P PRN 12/19 1145 AC N/A 1 UNIT IV Amlodipine Besylate 5 MG DAILY 12/20 899 AC 12/22 PO 1607 Atenolol 50 MG DAILY 12/20 899 AC 12/22 PO 1003 Dextrose/Sodium 1,000 ML Q20H 12/23 0745 AC Chloride IV Dextrose/Sodium 1,000 ML Q20H 12/23 0745 AC Chloride IV Dextrose/Sodium 1,000 ML Q10H 12/21 1900 DC 12/23 Chloride IV 0555 Fentanyl Citrate 0 .STK-MED ONE 12/22 1055 DC .ROUTE Heparin Sodium 5,000 UNIT Q8 12/19 2200 AC 12/23 (Porcine) SC 0546 Hydromorphone HCl 0 .STK-MED ONE 12/22 1431 DC .ROUTE Hydromorphone HCl 0 .STK-MED ONE 12/22 1411 DC .ROUTE Insulin Aspart 0 TIDAC 12/23 0800 AC SC Insulin Aspart 0 AT BEDTIME 12/20 2100 DC SC Insulin Human Regular 0 Q6 12/21 2359 DC 12/23 SC 0552 Midazolam HCl 0 .STK-MED ONE 12/22 1055 DC .ROUTE Morphine Sulfate 2 MG Q4P PRN 12/22 1345 AC IV Morphine Sulfate 4 MG Q4P PRN 12/22 1345 AC IV Ondansetron HCl 4 MG Q6P PRN 12/19 1600 AC 12/19 IV 1609 Oxycodone/ 1 TAB Q4P PRN 12/22 1345 AC 12/23 Acetaminophen PO 0547 Oxycodone/ 2 TAB Q4P PRN 12/22 1345 AC 12/22 Acetaminophen PO 2045 Pantoprazole Sodium 40 MG DAILY 12/19 1145 AC 12/22 IV 1608 Phosphate 250 MG PC AND AT BEDTIME 12/21 1300 AC 12/22 PO 2046 Tamsulosin HCl 0.4 MG DAILY 12/19 1145 AC 12/22 PO 1608 Results Last 48 Hours of Labs: Laboratory Tests 12/23 12/21 0737 1635 Chemistry Sodium (137 - 145 mmol/L) Pending 137 Potassium (3.5 - 5.1 mmol/L) Pending 3.9 Chloride (98 - 107 mmol/L) Pending 107 Carbon Dioxide (22 - 30 mmol/L) Pending 21 L Anion Gap (5 - 16) Pending 9 BUN (9 - 20 mg/dL) Pending 12 Creatinine (0.7 - 1.2 mg/dL) Pending 1.0 Estimated GFR (>60 ml/min) > 60 BUN/Creatinine Ratio (7 - 25 %) Pending 12.0 Phosphorus (2.5 - 4.5 mg/dL) Pending 2.9 Hematology CBC w Diff Pending WBC Pending RBC Pending Hgb Pending Hct Pending MCV Pending MCH Pending MCHC Pending RDW Pending Plt Count Pending MPV Pending Assessment/Plan Assessment/Plan 77 M admitted with sbo due to incarcerated parastomal hernia, now POD 1 s/p parastomal hernia repair with mesh, recovering well with return of ostomy function Advance to low fiber diet Decrease IVF Pain regimen prn Cont supp oral Phos Home meds on board DVT ppx - hsq, alps Encourage ambulation, IS F/u labs Anticipate d/c in 24-48 pending diet tolerance Will d/w Dr. Estrada Core Measures Venous Thromboembolism VTE Risk Factors Age>40 No Mechanical VTE Prophylaxis d/t N/A MechProphylax Ordered No VTE Pharm Prophylaxis d/t NA PharmProphylax ordered
[2017-12-23 08:14] LABS: ABSOLUTE BASOPHIL COUNT 0 /CUMM (0.0-0.2); ABSOLUTE EOSINOPHIL COUNT 0 /CUMM (0.0-0.7); ABSOLUTE GRANULOCYTE CT 9.7 /CUMM (1.4-6.5); ABSOLUTE LYMPH COUNT 1.2 /CUMM (1.2-3.4); ABSOLUTE MONOCYTE COUNT 0.8 /CUMM (0.10-0.60); BASOPHIL % 0.1 % (0.0-2.0); EOSINOPHIL % 0.1 % (0-5); GRANULOCYTE % 82.7 % (42.2-75.2); HEMATOCRIT 33.8 % (42-52); MEAN CORPUSCULAR HGB 30.1 PG (27.0-31.0); MEAN CORPUSCULAR HGB CONC 34.3 G/DL (33.0-37.0); MEAN CORPUSCULAR VOLUME 87.8 FL (80.0-94.0); MEAN PLATELET VOLUME 8.8 FL (7.4-10.4); PLATELET COUNT 188 /CUMM (130-400); RED BLOOD CELL CT 3.85 /CUMM (4.70-6.10)
[2017-12-23 08:22] LABS: WHITE BLOOD CELL COUNT 11.8 /CUMM (4.8-10.8)
--- NOTE | 2017-12-23 11:31 | Patient Discharge Instructions ---
Discharge Instructions General Discharge Information You were seen/treated for: Small bowel obstruction due to parastomal hernia You had these procedures: Parastomal hernia repair with mesh on 12/22/17 Watch for these problems: Increased pain, nausea, vomiting redness, swelling or drainage from incisions fever over 100.4 Do not soak the wound: Yes No bath, but you may shower: Yes Other wound care: Keep incisions clean and dry Change dressing daily as needed Diet Continue normal diet: Yes Recommended Diet: Low Residue Activity Full Activity/No Limits: No Activity Self Limited: Yes Pounds, do NOT lift more than: 10 Other activity limits: NO heavy lifting or strenous activity x 4 weeks Acute Coronary Syndrome Inclusion Criteria At DC or during hospital stay patient has or had the following: ACS DIAGNOSIS No Discharge Core Measures Meds if any: Prescribed or Continued at Discharge Meds if any: NOT Prescribed or Continued at Discharge Congestive Heart Failure Inclusion Criteria At DC or during hospital stay patient has or had the following: CHF DIAGNOSIS No Discharge Core Measures Meds if any: Prescribed or Continued at Discharge Meds if any: NOT Prescribed or Continued at Discharge Cerebrovascular accident Inclusion Criteria At DC or during hospital stay patient has or had the following: CVA/TIA Diagnosis No Discharge Core Measures Meds if any: Prescribed or Continued at Discharge Meds if any: NOT Prescribed or Continued at Discharge Venous thromboembolism Inclusion Criteria VTE Diagnosis No VTE Type NONE VTE Confirmed by (Test) NONE Discharge Core Measures - Per Current guidelines, there needs to be overlap - treatment for the first 5 days of Warfarin therapy. - If discharged on Warfarin prior to 5 days of - overlap therapy, the patient will need to be - assessed for post discharge needs including - *Post discharge parental anticoagulation - *Warfarin and/or parental anticoagulation education - *Follow up date to check INR post discharge At least 5 days overlap therapy as Inpatient No Meds if any: Prescribed or Continued at Discharge Note: Overlap Therapy is Warfarin and Anticoagulant Meds if any: NOT Prescribed or Continued at Discharge
[2017-12-23] MEDS ORDERED: PERCOCET 5-3251 EACH PO (13:10)
[2017-12-23 14:15] VITALS: BP 127/66
[2017-12-23 21:11] VITALS: BP 144/60
[2017-12-24 06:21] VITALS: BP 132/60
--- NOTE | 2017-12-24 07:24 | PN- Student ---
Subjective Subjective: Pt has no acute complaints. Pt reports leaking from ostomy bag last night due to overflow "bag was more full than I've ever seen it". Pain is at site of mesh and described as crampy, 3/10, and manageable. Pain exacerbated by walking, leaning to side and is improved by heated rice bag. Pt vomited yesterday at 2pm after lunch, but was able to eat a small amount of dinner later without subsequent emesis. No current nausea or emesis. Pt urinating and ambulating independently. Denies all other ROS. Objective Objective: Vitals: T 98.3, HR 78, BP 132/60, RR 20, O2 99%, Pain 3/10 (normal and stable) I/O: 1940/2575 (normal) IVF: 1100 PO: 840 UOP: 1625 Stool: 950 Exam: Gen: Pt resting comfortably in bed in NAD Cardiac: normal RRR, no M, R, G Lungs: CTA BL Abdomen: + BS, soft, non-distended, mildly tender at mesh site, normal tympany in all 4 quadrants. Extremities: DP/PT pulses 2+ BL, no edema, warm and well-perfused Incisions: Dressings are clean, dry, and intact. Port sites appear to be healing well, well-approximated with steri strips, no erythema/swelling/ discharge. Labs: Fasting Glucose: 126 CBC: mild anemia, otherwise unremarkable Coagulation: normal BMP: mild hyponatremia, otherwise unremarkable Assessment/Plan Assessment: Pt is a 77 y/o M w/ PMH of HTN, T2DM, GERD, IBD, colon cancer s/p ileostomy/ colectomy who is currently POD#2 s/p robo parasternal hernia repair w/ mesh. Pt is stable. Neuro: pain well-controlled with acetaminophen 650mg PO Q4hr Cardiac: PO fluids Lungs: on room air GI: normal diet as tolerated : voiding independently Heme: heparin 5000U SC Q8hr for DVT prophylaxis Endocrine: glucose well-controlled with insulin sliding scale Wound: remove dressings tomorrow; leave steri strips in place Dispo/other: Continue routine post-op care Encourage ambulation and normal diet as tolerated Plan to discharge home today
[2017-12-24 07:46] LABS: ABSOLUTE BASOPHIL COUNT 0 /CUMM (0.0-0.2); ABSOLUTE EOSINOPHIL COUNT 0.4 /CUMM (0.0-0.7); ABSOLUTE GRANULOCYTE CT 4.4 /CUMM (1.4-6.5); ABSOLUTE LYMPH COUNT 1.7 /CUMM (1.2-3.4); ABSOLUTE MONOCYTE COUNT 0.9 /CUMM (0.10-0.60); BASOPHIL % 0.4 % (0.0-2.0); HEMATOCRIT 31.4 % (42-52); MEAN CORPUSCULAR HGB 30.4 PG (27.0-31.0); MEAN CORPUSCULAR VOLUME 86.8 FL (80.0-94.0); MEAN PLATELET VOLUME 8.2 FL (7.4-10.4); PLATELET COUNT 177 /CUMM (130-400); RBC DISTRIBUTION WIDTH 16.1 % (11.5-14.5); RED BLOOD CELL CT 3.62 /CUMM (4.70-6.10); WHITE BLOOD CELL COUNT 7.4 /CUMM (4.8-10.8)
[2017-12-24] MEDS ORDERED: TYLENOL EXTRA500 M2 PO (07:51)
--- NOTE | 2017-12-24 08:09 | PN- General Surgery ---
Subjective Subjective: Patient reports an episode of vomiting yesterday afternoon, which he thinks was related to percocet. Pain controlled with Tylenol. He tolerated dinner without nausea or vomiting. Reports continous ostomy output and reports leaking overnight, new bag reapplied. Offer no other complaints. Objective Vital Signs and I&Os Vital Signs Date Time Temp Pulse Resp B/P B/P Pulse O2 O2 Flow FiO2 Mean Ox Delivery Rate 12/24 620 98.3 78 20 132/60 99 Room Air 12/23 2111 98.7 74 19 144/60 97 Room Air 12/23 1415 97.4 76 18 127/66 100 Room Air 12/23 0911 72 132/58 12/23 0910 72 132/58 12/23 0910 72 132/58 Intake & Output 12/24 0812/24 0000 12/23 1600 12/23 0000 Intake Total 240 600 420 920 600 Output Total 600 1375 574 101 7238 Balance -360 -775 -130 270 -875 Intake, IV 300 800 400 Intake, Oral 240 600 120 120 200 Output, Stool 600 800 150 50 Output, Urine 575 155 215 6482 Physical Exam: Gen - resting comfortably in nad Cardiac - S1S2 noted Lungs - crackles bases Abd - soft, nondistended, +bs, dressings c/d/i, stoma pink, patent with gas and bilious stool, no leaking applied, appropriately tender soumya-incisionally, no rebound or guarding noted Ext - no edema or calf pain Current Medications: Current Medications Sig/Lacho Start time Last Medication Dose Route Stop Time Status Admin Acetaminophen 1,000 MG Q6P PRN 12/19 1145 AC N/A 1 UNIT IV Amlodipine Besylate 5 MG DAILY 12/20 899 AC 12/23 PO 0911 Atenolol 50 MG DAILY 12/20 899 AC 12/23 PO 0910 Dextrose/Sodium 1,000 ML Q20H 12/23 0745 DC 12/23 Chloride IV 0758 Heparin Sodium 5,000 UNIT Q8 12/19 2200 AC 12/24 (Porcine) SC 0535 Insulin Aspart 0 TIDAC 12/23 0800 AC 12/23 SC 1721 Morphine Sulfate 2 MG Q4P PRN 12/22 1345 AC IV Morphine Sulfate 4 MG Q4P PRN 12/22 1345 AC IV Ondansetron HCl 4 MG Q6P PRN 12/19 1600 AC 12/23 IV 1725 Oxycodone/ 1 TAB Q4P PRN 12/22 1345 AC 12/23 Acetaminophen PO 1720 Oxycodone/ 2 TAB Q4P PRN 12/22 1345 AC 12/22 Acetaminophen PO 204 Pantoprazole Sodium 40 MG DAILY 12/19 1145 AC 12/23 IV 0910 Phosphate 250 MG PC AND AT BEDTIME 12/21 1300 AC 12/23 PO 194 Tamsulosin HCl 0.4 MG DAILY 12/19 1145 AC 12/23 PO 0910 Results Last 48 Hours of Labs: Laboratory Tests 12/24 12/23 0655 0737 Chemistry Sodium (137 - 145 mmol/L) Pending 137 Potassium (3.5 - 5.1 mmol/L) Pending 4.3 Chloride (98 - 107 mmol/L) Pending 104 Carbon Dioxide (22 - 30 mmol/L) Pending 22 Anion Gap (5 - 16) Pending 11 BUN (9 - 20 mg/dL) Pending 8 L Creatinine (0.7 - 1.2 mg/dL) Pending 0.9 Estimated GFR (>60 ml/min) > 60 BUN/Creatinine Ratio (7 - 25 %) Pending 8.9 Phosphorus (2.5 - 4.5 mg/dL) 2.8 Hematology CBC w Diff NO MAN DIFF REQ NO MAN DIFF REQ WBC (4.8 - 10.8 /CUMM) 7.4 11.8 H RBC (4.70 - 6.10 /CUMM) 3.62 L 3.85 L Hgb (14.0 - 18.0 G/DL) 11.0 L 11.6 L Hct (42 - 52 %) 31.4 L 33.8 L MCV (80.0 - 94.0 FL) 86.8 87.8 MCH (27.0 - 31.0 PG) 30.4 30.1 MCHC (33.0 - 37.0 G/DL) 35.0 34.3 RDW (11.5 - 14.5 %) 16.1 H 16.0 H Plt Count (130 - 400 /CUMM) 177 188 MPV (7.4 - 10.4 FL) 8.2 8.8 Gran % (42.2 - 75.2 %) 60.0 82.7 H Lymphocytes % (20.5 - 51.1 %) 22.7 10.4 L Monocytes % (1.7 - 9.3 %) 11.9 H 6.7 Eosinophils % (0 - 5 %) 5.0 0.1 Basophils % (0.0 - 2.0 %) 0.4 0.1 Absolute Granulocytes (1.4 - 6.5 /CUMM) 4.4 9.7 H Absolute Lymphocytes (1.2 - 3.4 /CUMM) 1.7 1.2 Absolute Monocytes (0.10 - 0.60 /CUMM) 0.9 H 0.8 H Absolute Eosinophils (0.0 - 0.7 /CUMM) 0.4 0 Absolute Basophils (0.0 - 0.2 /CUMM) 0 0 Assessment/Plan Assessment/Plan 77 M admitted with sbo due to incarcerated parastomal hernia, now POD 2 s/p parastomal hernia repair with mesh, recovering well with return of ostomy function and one episode of vomiting yesterday, now resolved Cont low fiber diet ES Tylenol for pain prn Home meds on board DVT ppx - hsq, alps Encourage ambulation, IS F/u labs, likely d/c Phos supp Anticipate d/c today pending diet tolerance D/w Dr. Estrada Core Measures Venous Thromboembolism VTE Risk Factors Age>40 No Mechanical VTE Prophylaxis d/t N/A MechProphylax Ordered No VTE Pharm Prophylaxis d/t NA PharmProphylax ordered
[2017-12-24 13:50] VITALS: BP 122/68
--- NOTE | 2017-12-24 19:34 | Surgical Discharge Summary ---
Visit Information Visit Dates Admission Date: 12/19/17 Discharge Date: 12/24/17 History of Present Illness Chief Complaint: sbo Medical History Neurological: NONE EENT: NONE Cardiovascular: hypertension, hyperlipidemia, QUAD BYPASS 2003 Respiratory: NONE Gastrointestinal: Crohn's disease, ulcerative colitis, ILLEOSTOMY Hepatic: NONE Renal: NONE Musculoskeletal: NONE Psychiatric: NONE Endocrine: NONE Blood Disorders: NONE Cancer(s): NONE HEAVY CLEANER/Reproductive: NONE History of MRSA: No History of VRE: No History of CDIFF: No Isolation History: Standard Surgical History Pertinent Surgical History: total proctocolectomy with ileostomy Psychosocial History Who Do You Live With? Spouse Services at Home: None What is Your Primary Language? Spanish Review of Systems: see preop hp Hospital Course Course Attending Physician: Rd Estrada MD Primary Care Physician: Fracisco HUMMEL,Jennifer Avery Hospital Course: Patient found to have incarcerated parastoma hernia. the hernia was reduced and sbo resolved. he was subesquently taken to the OR for repair of the hernia. Patient was discharged home after tolerance of diet. Allergies: Coded Allergies: Sulfa (Sulfonamide Antibiotics) (RASH PER PT 10/31/17) Significant Procedures: laparoscopic parastoma hernia repair Disposition Summary Disposition Principal Diagnosis: parastoma hernia with obstruction. Additional Diagnosis: none Discharge Disposition: home or self care Discharge Instructions General Discharge Information Code Status: Full Code Patient's Diet: regular Patient's Activity: no lifting Follow-Up Instructions/Appts: 2 weeks. Medications at Discharge Discharge Medications: Continue taking these medications: Ramipril (Ramipril) 10 MG CAPSULE 1 Capsule ORAL DAILY Qty = 90 Comments: NOT GIVEN IN HOSPITAL Omeprazole (Omeprazole) 40 MG CAPSULE.DR 1 Capsule ORAL DAILY Qty = 90 Comments: NOT GIVEN IN HOSPITAL Amlodipine Besylate (Amlodipine Besylate) 5 MG TABLET 1 Tablet ORAL DAILY Qty = 90 Comments: Last Taken: 12/24/2017 Time: 8:15 AM Atenolol (Atenolol) 50 MG TABLET 1 Tablet ORAL DAILY Qty = 270 Comments: Last Taken: 12/24/17 Time: 8:15 AM Ergocalciferol (Vitamin D2) (Vitamin D2) 50,000 UNIT CAPSULE 1 Capsule ORAL Once a Week Qty = 13 Comments: NOT GIVEN IN HOSPITAL Methotrexate (Methotrexate) 2.5 MG TABLET 6 Tablet ORAL Once a Week Qty = 72 Comments: NOT GIVEN IN HOSPITAL Simvastatin (Simvastatin*) 40 MG TABLET 1 Tablet ORAL Every night Qty = 90 Comments: NOT GIVEN IN HOSPITAL Tamsulosin HCl (Tamsulosin HCl) 0.4 MG CAP.ER.24H 1 Capsule ORAL DAILY Qty = 90 Comments: Last Taken: 12/24/17 Time: 8:15AM Aspirin (Aspirin*) 81 MG TAB.CHEW 1 Tablet ORAL DAILY Comments: NOT GIVEN IN HOSPITAL Cyanocobalamin (Vitamin B-12) 1,000 MCG TABLET 1 Tablet ORAL DAILY Comments: NOT GIVEN IN HOSPITAL Pyridoxine HCl (Vitamin B-6) 50 MG TABLET 1 Tablet ORAL DAILY Comments: NOT GIVEN IN HOSPITAL Folic Acid (Folic Acid) 1 MG TABLET 1 Tablet ORAL DAILY Comments: NOT GIVEN IN HOSPITAL Start taking the following new medications: Acetaminophen (Tylenol Extra Strength) 500 MG TABLET 1-2 Tablet ORAL EVERY SIX HOURS as needed for PAIN Qty = 60 No Refills Comments: Last Taken: 12/24/17 Time: 3:30 PM Copies To: Fracisco HUMMEL,Jennifer Avery
== END 2017-12-24 17:57 | DRG 354 ==
LOC: ERH 07:29 → ERHI 10:26 → 2NB 10:26 → ENRESERV 12:28 → ENTRNSPT 13:04 → EDTRNSPTSTS 13:16 → EDTRNSPT 13:16 → 2NB 13:28 → CMPTRNSPT 13:35 → ENTRNSPT 12-22 14:50 → EDTRNSPT 12-22 14:54 → EDTRNSPTSTS 12-22 14:54 → CMPTRNSPT 12-22 15:29 → ENPENDDIS 12-24 15:17 → DELTRNSPT 12-24 17:23 → ENTRNSPT 12-24 17:47 → EDTRNSPT 12-24 17:48 → EDTRNSPTSTS 12-24 17:48 → 2NB 12-24 17:57 → CMPTRNSPT 12-24 17:58
PROVIDERS: Emergency Medicine; Physician Assistant; Physician Assistant Surgical
PROC: 0WUF4JZ Supplement Abdominal Wall with Synthetic Substitute, Percutaneous Endoscopic Approach (ICD-10-PCS; principal; 2017-12-22)
PROC: 8E0W4CZ Robotic Assisted Procedure of Trunk Region, Percutaneous Endoscopic Approach (ICD-10-PCS; principal; 2017-12-22)
PROC: 3E0T3BZ Introduction of Anesthetic Agent into Peripheral Nerves and Plexi, Percutaneous Approach (ICD-10-PCS; 2017-12-22)
DX: K43.3 Parastomal hernia with obstruction, without gangrene (principal); N17.9 Acute kidney failure, unspecified; I10 Essential (primary) hypertension; E78.5 Hyperlipidemia, unspecified; E87.5 Hyperkalemia; K21.9 Gastro-esophageal reflux disease without esophagitis; Z85.038 Personal history of other malignant neoplasm of large intestine; Z95.1 Presence of aortocoronary bypass graft; Z88.8 Allergy status to other drugs, medicaments and biological substances; Z87.891 Personal history of nicotine dependence; Z88.2 Allergy status to sulfonamides; Z90.49 Acquired absence of other specified parts of digestive tract; Z87.19 Personal history of other diseases of the digestive system
CPT/HCPCS: 2NBSP; 36415; 36592; 74177; 82436; 93005; 93010; 96361; 96365; 96375; 99291; C1781; C9290; J0131; J0610; J1644; J1815; J2405; J7042